=== PATIENT | male | born 1955 | race Caucasian/White ===

== ENCOUNTER 2019-06-14 07:20 | Emergency (ER) | payer BC ==
[2019-06-14] MEDS ORDERED: LIDOCAINE 2% URO-JET 5 ML KIT MM ONE (08:26)
--- NOTE | 2019-06-14 09:07 | ER Document Report ---
ED GI/ - General Chief Complaint: Urinary Problem Stated Complaint: DIFFICULTY URINATING Time Seen by Provider: 06/14/19 08:39 Primary Care Provider: DOMINGUEZ COLINDRES MD [Primary Care Provider] - Follow up as needed ROLANDO IRVIN MD [NO LOCAL MD] - 06/25/19 8:45 am Notes: 63-year-old gentleman with history of BPH presents to the emergency department for acute urinary retention. Patient states that his last urination was at 9 PM last night. Patient complains of suprapubic tenderness and a sensation of bloating. Patient states that historically he would have trouble "getting going" but then would start urinating without problem. Patient denies any flank pain, fevers. TRAVEL OUTSIDE OF THE [place] IN LAST 30 DAYS: No - Related Data Allergies/Adverse Reactions: No Known Allergies Allergy (Verified 06/14/19 07:26) Past Medical History - Social History Smoking Status: Current Every Day Smoker Chew tobacco use (# tins/day): No Frequency of alcohol use: None Drug Abuse: None Family History: None Patient has suicidal ideation: No Patient has homicidal ideation: No Renal/ Medical History: Denies: Hx Peritoneal Dialysis Review of Systems - Review of Systems Constitutional: See HPI EENT: No symptoms reported Cardiovascular: No symptoms reported Respiratory: No symptoms reported Gastrointestinal: See HPI Genitourinary: See HPI Male Genitourinary: No symptoms reported Musculoskeletal: No symptoms reported Skin: No symptoms reported Hematologic/Lymphatic: No symptoms reported Neurological/Psychological: No symptoms reported Physical Exam - Vital signs Vitals: Temp Pulse Resp BP Pulse Ox 97.5 F 75 24 H 146/90 H 94 06/14/19 07:26 06/14/19 07:26 06/14/19 07:26 06/14/19 07:26 06/14/19 07:26 - Notes Notes: PHYSICAL EXAMINATION: Reviewed vital signs and charting by RN GENERAL: Alert, interacts well. No acute distress. HEAD: Normocephalic, atraumatic. EYES: Pupils equal and round. Extraocular movements intact. ENT: Oral mucosa moist, tongue midline. NECK: Full range of motion. Trachea midline. ABDOMEN: soft, suprapubic tenderness. No distention. Bowel sounds present EXTREMITIES: Moves all 4 extremities spontaneously. No edema, No cyanosis. PSYCH: Normal affect, normal mood. SKIN: Warm, dry, normal turgor. No rashes or lesions noted. Course - Re-evaluation Re-evalutation: 06/14/19 09:07 Patient is well-appearing, a Shafer catheter was placed without difficulty and patient reported immediate relief. Patient states his urologist is based out of [facility] here in [place] but does not remember the urologist's exact name. Plan is to contact them to arrange close follow-up. 06/14/19 09:44 I spoke with [facility] urology clinic [place] office and found out that patient's urologist is Dr. Rolando Irvin. The want him to follow-up on June 25 at 9 AM and to keep the Shafer in place. Patient will be given care instructions with the Shafer. Patient is stable for discharge. - Vital Signs Vital signs: Temp Pulse Resp BP Pulse Ox 97.5 F 75 24 H 146/90 H 94 06/14/19 07:26 06/14/19 07:26 06/14/19 07:26 06/14/19 07:26 06/14/19 07:26 Discharge - Discharge Clinical Impression: Urinary retention Condition: Good Disposition: HOME, SELF-CARE Additional Instructions: You were seen in the emergency department this morning for urinary retention. We have placed a Shafer catheter and called your urologist. His recommendation is to keep the Shafer in place and maintain it until you see him on June 25. You have received instructions for care and how to empty the bag. If you do develop fever, worsening abdominal pain, abnormal discharge around the catheter, blood coming around the catheter from your meatus, or any other concerning symptoms. Referrals: DOMINGUEZ COLINDRES MD [Primary Care Provider] - Follow up as needed ROLANDO IRVIN MD [NO LOCAL MD] - 06/25/19 8:45 am
[2019-06-14 10:29] VITALS: BP 124/75
== END 2019-06-14 10:30 | disposition home or self-care (01) ==
LOC: ER 07:20
DX: R33.9 Retention of urine, unspecified (principal); F17.200 Nicotine dependence, unspecified, uncomplicated
CPT/HCPCS: C1758; J3490

== ENCOUNTER 2020-09-21 20:11 | Inpatient (IN) | payer MEDICARE, OTHER ==
--- NOTE | 2020-09-21 20:44 | ER Document Report ---
ED Respiratory Problem - General Chief Complaint: Shortness Of Breath Stated Complaint: WEAKNESS Time Seen by Provider: 09/21/20 20:43 Primary Care Provider: DOMINGUEZ COLINDRES MD [Primary Care Provider] - Follow up as needed Mode of Arrival: Ambulatory Information source: Patient Notes: 09/21/20 20:35 - ED Nursing Note by PATRICIA ACE Num: [id number] : 1955 Patient Age: 64 pt was dx w/lung cancer in both lungs. states for days difficult breathing, worse at night. pt does have some cracked ribs, but the pain is better. Initialized on 09/21/20 20:35 - END OF NOTE MY NOTES 64-year-old male with chief complaint of chest congestion and weakness for 1 month but worse today. Patient has left greater than right lung cancer and is status post chemotherapy and immunotherapy CAR-T system. Patient used to smoke 2 packs a day cigarettes since he was 14 years old but quit several months ago. He was diagnosed in May of this year at [facility] with lung cancer. He receives daily radiation treatments as per Dr. Federico Warren because of metastasis to his right hip and also to his T2 area. Last treatment was 09/12. Patient's son Morena is also present. Patient reports he is been having a lot of productive phlegm excessive amounts over the last month. He denies any hemoptysis at this time. Chest x-ray portable done in room reveals a left pneumonia post obstructional type infiltrate. Patient is saturation 95% on room air. He appears to be afebrile at this time. He denies any Covid or influenza. TRAVEL OUTSIDE OF THE [place] IN LAST 30 DAYS: No - HPI Patient complains to provider of: Cough Onset: Last week Duration: Worse/persistent Initiating Event: Exertion - worse on standing exertion - Related Data Allergies/Adverse Reactions: No Known Allergies Allergy (Verified 06/14/19 07:26) Home Medications: decadron, proscar,zofran, oxycodone, compazine, flomax Past Medical History - Social History Smoking Status: Former Smoker Cigarette use (# per day): No Chew tobacco use (# tins/day): No Smoking Education Provided: No Frequency of alcohol use: None - patient quit drinking over 40 years ago Family History: Reviewed & Not Pertinent, Malignancy Patient has suicidal ideation: No Patient has homicidal ideation: No Renal/ Medical History: Denies: Hx Peritoneal Dialysis Review of Systems - Review of Systems Constitutional: See HPI, Weakness, Weight loss, Recent illness EENT: No symptoms reported Cardiovascular: See HPI, Chest pain, Orthopnea, Dyspnea, Dizziness, Lightheaded Respiratory: See HPI, Cough, Short of breath, Sputum Gastrointestinal: No symptoms reported Genitourinary: No symptoms reported Male Genitourinary: No symptoms reported Musculoskeletal: No symptoms reported Skin: No symptoms reported Hematologic/Lymphatic: No symptoms reported Neurological/Psychological: No symptoms reported Physical Exam - Vital signs Vitals: Temp Pulse Resp BP Pulse Ox 97.9 F 118 H 16 72/41 L 95 09/21/20 20:22 09/21/20 20:22 09/21/20 20:22 09/21/20 20:22 09/21/20 20:22 Interpretation: Tachycardic - General General appearance: Alert - HEENT Head: Normocephalic, Atraumatic Eyes: Normal Pupils: PERRL - Respiratory Respiratory status: Labored, Tachypnea Chest status: Nontender Breath sounds: Rhonchi - L>R Chest palpation: Normal - Cardiovascular Rhythm: Tachycardia Heart sounds: Normal auscultation Murmur: No - Abdominal Inspection: Normal Distension: No distension Bowel sounds: Normal Tenderness: Nontender Organomegaly: No organomegaly - Rectal Prostate: Other - deferred - Genitourinary Scrotum: Other - deferred - Back Back: Normal, Nontender - Extremities General upper extremity: Normal inspection, Nontender, Normal color, Normal ROM, Normal temperature General lower extremity: Normal inspection, Nontender, Normal color, Normal ROM, Normal temperature, Normal weight bearing. No: Ramírez's sign - Neurological Neuro grossly intact: Yes Cognition: Normal Orientation: AAOx4 Sosa Coma Scale Eye Opening: Spontaneous Sosa Coma Scale Verbal: Oriented Sosa Coma Scale Motor: Obeys Commands [place] Coma Scale Total: 15 Speech: Normal Motor strength normal: LUE, RUE, LLE, RLE Sensory: Normal - Psychological Associated symptoms: Normal affect, Normal mood - Skin Skin Temperature: Warm Skin Moisture: Dry Skin Color: Normal Course - Vital Signs Vital signs: Temp Pulse Resp BP Pulse Ox 97.9 F 118 H 23 H 98/61 L 96 09/21/20 20:22 09/21/20 20:22 09/21/20 20:49 09/21/20 20:50 09/21/20 21:00 - Laboratory Result Diagrams: 09/21/20 22:00 09/21/20 22:00 Laboratory results interpreted by me: 09/21/20 09/21/20 09/21/20 22:00 22:00 22:00 WBC 2.8 L RBC 2.20 L Hgb 7.0 L Hct 20.9 L RDW 19.7 H Plt Count 89 L Lymphocytes % (Manual) 9 L Monocytes % (Manual) 20 H Abs Lymphs (Manual) 0.3 L PT 17.3 H Sodium 121.5 L Potassium 3.2 L Chloride 78 L Carbon Dioxide 37 H BUN 25 H Glucose 158 H Calcium 7.7 L NT-Pro-B Natriuret Pep Total Protein 4.7 L Albumin 2.3 L 09/21/20 22:00 WBC RBC Hgb Hct RDW Plt Count Lymphocytes % (Manual) Monocytes % (Manual) Abs Lymphs (Manual) PT Sodium Potassium Chloride Carbon Dioxide BUN Glucose Calcium NT-Pro-B Natriuret Pep 1000 H Total Protein Albumin Critical Care Note - Critical Care Note Comments: I discussed this case with Dr. Uche Cardenas at 2320 and he advises he will see the patient for admission Discharge - Discharge Clinical Impression: Hyponatremia, Anemia requiring transfusions Pneumonia Qualifiers: Pneumonia type: due to unspecified organism Laterality: left Lung location: unspecified part of lung Qualified Code(s): J18.9 - Pneumonia, unspecified organism Condition: Stable Disposition: ADMITTED INPATIENT Admitting Provider: Theresa Unit Admitted: IMCU Referrals: DOMINGUEZ COLINDRES MD [Primary Care Provider] - Follow up as needed
[2020-09-21] MEDS ORDERED: VANCOMYCIN HCL INJ 1000 MG VIAL IV ONE (21:05)
[2020-09-21] MEDS ORDERED: PIPERACILLIN/TAZOBACTAM 3.375 GM VIAL IV ONE (21:06)
[2020-09-21] MEDS ORDERED: NORMAL SALINE 1000 ML 1,000 ML IV PRN (21:10)
--- NOTE | 2020-09-21 21:22 | RADIOLOGY REPORT (SQ) ---
EXAM DESCRIPTION: XR CHEST 1 VIEW COMPLETED DATE/TME: 09/21/2020 21:00 CLINICAL HISTORY: 64 years, Male, sob COMPARISON: June 22, 2020 PET/CT NUMBER OF VIEWS: 1 TECHNIQUE: Portable AP upright view of the chest was obtained at 8:57 PM LIMITATIONS: None. FINDINGS: Interstitial and airspace opacities within the left mid and lower lung zones with more dense consolidation left lung base are similar to the prior examination. Significant hypermetabolic activity is noted within the left lower lobe as well as several lymph nodes on PET/CT and underlying malignancy is not excluded. Mild peripheral fibrotic changes are noted on the right. Heart size is top normal. No pneumothorax. No significant pleural effusion is seen. IMPRESSION: Interstitial airspace opacities on the left with more dense consolidation at the left base. No significant interval change is suspected when correlated with the June 22, 2020 PET/CT. copyright 2010 [employer]- All Rights Reserved
[2020-09-21 22:44] LABS: HEMATOCRIT 20.9 % (37.9-51.0); MEAN CORPUSCULAR HGB CONC 33.6 g/dL (32.0-36.0); MEAN CORPUSCULAR VOLUME 95 fl (80-97); PROTHROMBIN TIME 17.3 SEC (11.4-15.4); RED CELL DISTRIBUTION WIDTH 19.7 % (11.5-14.0); WHITE BLOOD COUNT 2.8 10^3/uL (4.0-10.5)
[2020-09-21 22:45] LABS: PARTIAL THROMBOPLASTIN TIME 34.5 SEC (23.5-35.8)
[2020-09-21 22:59] LABS: ALBUMIN 2.3 g/dL (3.5-5.0); ALKALINE PHOSPHATASE 87 U/L (38-126); ANION GAP 7 (5-19); ASPARTATE AMINO TRANSFERASE 22 U/L (17-59); BILIRUBIN,DIRECT 0.3 mg/dL (0.0-0.4); BLOOD UREA NITROGEN 25 mg/dL (7-20); CALCIUM 7.7 mg/dL (8.4-10.2); CARBON DIOXIDE 37 mmol/L (22-30); CHLORIDE 78 mmol/L (98-107); GLUCOSE 158 mg/dL (75-110); POTASSIUM 3.2 mmol/L (3.6-5.0); TOTAL PROTEIN 4.7 g/dL (6.3-8.2)
[2020-09-21 23:03] LABS: PLATELET COUNT 89 10^3/uL (150-450)
--- NOTE | 2020-09-21 23:03 | EKG REPORT ---
SEVERITY:- ABNORMAL ECG - SINUS RHYTHM REPOL ABNRM SUGGESTS ISCHEMIA, ANT-LAT LEADS : Confirmed by: Denys Rodriguez MD 21-Sep-2020 23:02:44
[2020-09-21] MEDS ORDERED: NORMAL SALINE 250 ML IV PRN ×2 (23:05)
[2020-09-21 23:07] LABS: ABSOLUTE LYMPHOCYTES# (MANUAL) 0.3 10^3/uL (0.5-4.7); ABSOLUTE MONOCYTES # (MANUAL) 0.6 10^3/uL (0.1-1.4); BASOPHILS % (MANUAL) 0 % (0-2); EOSINOPHILS % (MANUAL) 0 % (0-6); LYMPHOCYTES % (MANUAL) 9 % (13-45); MONOCYTES % (MANUAL) 20 % (3-13); SEGMENTED NEUTROPHILS % (MAN) 71 % (42-78); TOTAL CELLS COUNTED 100
[2020-09-21 23:10] LABS: ANISOCYTOSIS 2+; OVALOCYTES SLIGHT; PLATELET COMMENT DECREASED; POLYCHROMASIA SLIGHT
[2020-09-21 23:11] LABS: NT PRO BNP 1000 pg/mL (<125)
[2020-09-21 23:12] LABS: TROPONIN I < 0.012 ng/mL
[2020-09-21] MEDS ORDERED: VANCOMYCIN HCL INJ 1000 MG VIAL ONE (23:31)
[2020-09-22] MEDS ORDERED: GUAIFENESIN 600 MG TABLET.SA PO PRN ×2 (00:09→16:32)
[2020-09-22] MEDS ORDERED: VANCOMYCIN HCL 0 MG in DEXTROSE 5%-WATER 250 ML IV NR (00:30)
[2020-09-22] MEDS ORDERED: CEFEPIME 2 GM/D5W RTU 2 GM/50 ML RTUPB IV SCH (00:30)
--- NOTE | 2020-09-22 00:31 | PDOC H&P ---
History of Present Illness Admission Date/PCP: 09/21/20 23:46 DOMINGUEZ COLINDRES MD Patient complains of: Generalized weakness History of Present Illness: RHIANNON DAN is a 64 year old male with a history of metastatic lung cancer(metastases to T2 and right hip) diagnosed about 3 months back currently on chemo, immune and radiotherapy presents to the ER with generalized weakness. Patient reports that he has been generally feeling weak over the past month aft er he was started on the chemotherapy but over the last week it has progressively gotten worse. He also states that yesterday he felt very weak and fell to the ground but denies any history of feeling lightheaded, chest pain, palpitation, head injury or loss of consciousness immediately before, during or after the incident. Patient also reports that he has been coughing more than usual and he brings up clear whitish sputum. He also has occasional vomiting of ingested matter but denies any history of hematochezia, hematemesis or melena. Patient also denies history of fever, chills, diarrhea, dysuria, urgency or frequency of urination. Patient reports that he was transfused during the ses christiano of chemotherapy last Friday. Apart from his frequent hospital visits for chemo and radiotherapy patient denies history of close contact with sick patient. Social History Information Source: Patient Lives with: Family Smoking Status: Former Smoker Frequency of Alcohol Use: None Hx Recreational Drug Use: No Drugs: None - Advance Directive Resuscitation Status: Full Code Family History Family History: Reviewed & Not Pertinent, Malignancy Parental Family History Reviewed: Yes Children Family History Reviewed: Yes Sibling(s) Family History Reviewed.: Yes Medication/Allergy Allergies/Adverse Reactions: No Known Allergies Allergy (Verified 06/14/19 07:26) Review of Systems Constitutional: ABSENT: chills, headache(s), weight gain, weight loss Eyes: ABSENT: visual disturbances Ears: ABSENT: hearing changes Nose, Mouth, and Throat: ABSENT: headache(s), mouth pain, sore throat Cardiovascular: PRESENT: dyspnea on exertion. ABSENT: chest pain, edema, orthropnea, palpitations Respiratory: PRESENT: as per HPI, cough. ABSENT: hemoptysis Gastrointestinal: ABSENT: abdominal pain, constipation, diarrhea, hematemesis, hematochezia, nausea, vomiting Genitourinary: ABSENT: dysuria, hematuria Musculoskeletal: ABSENT: joint swelling Integumentary: ABSENT: rash, wounds Neurological: ABSENT: abnormal speech, confusion, dizziness, focal weakness, syncope Psychiatric: ABSENT: anxiety, depression, homidical ideation, suicidal ideation Endocrine: ABSENT: cold intolerance, heat intolerance, polydipsia, polyuria Physical Exam Vital Signs: Temp Pulse Resp BP Pulse Ox 97.9 F 118 H 23 H 98/61 L 96 09/21/20 20:22 09/21/20 20:22 09/21/20 20:49 09/21/20 20:50 09/21/20 21:00 Intake & Output 09/20/20 09/21/20 09/22/20 06:59 06:59 06:59 Intake Total 1000 Balance 1000 Weight 73.482 kg Additional comments: GENERAL APPEARANCE: Alert and oriented x3, in no acute distress HEENT: Normocephalic and atraumatic. No scleral icterus. Moist oral mucosa NECK: Supple. No lymphadenopathy or tenderness. No JVD CHEST: Symmetric. Nontender to palpation. LUNGS: Clear with good air entry bilaterally. No wheezing or crackles HEART: Regular rate and rhythm with normal S1 and S2. No murmurs, gallops, or rubs. ABDOMEN: soft, active bowel sounds, no direct or rebound tenderness. No organomegaly detected. No CVA tenderness EXTREMITIES: No cyanosis, clubbing, or edema. MUSCULOSKELETAL: No deformity, atrophy or swelling noted PSYCHIATRIC: Recent and remote memory is intact. Appropriate mood and affect. SKIN: Warm, dry, and well perfused. No lesions or rashes are noted. NEUROLOGIC: No focal sensory or motor deficits are noted. Results Laboratory Results: 09/21/20 22:00 09/21/20 22:00 09/21/20 09/21/20 22:00 22:00 WBC 2.8 L RBC 2.20 L Hgb 7.0 L Hct 20.9 L MCV 95 MCH 32.0 MCHC 33.6 RDW 19.7 H Plt Count 89 L Seg Neutrophils % Not Reportable Sodium 121.5 L Potassium 3.2 L Chloride 78 L Carbon Dioxide 37 H Anion Gap 7 BUN 25 H Creatinine 0.58 Est GFR ( Amer) > 60 Glucose 158 H Calcium 7.7 L Total Bilirubin 1.0 AST 22 Alkaline Phosphatase 87 Total Protein 4.7 L Albumin 2.3 L 09/21/20 22:00 Troponin I < 0.012 NT-Pro-B Natriuret Pep 1000 H Impressions: Chest X-Ray 09/21/20 20:46 IMPRESSION: Interstitial airspace opacities on the left with more dense consolidation at the left base. No significant interval change is suspected when correlated with the June 22, 2020 PET/CT. copyright 2010 [employer]- All Rights Reserved Assessment and Plan - Diagnosis (1) Anemia requiring transfusions Is this a current diagnosis for this admission?: Yes Plan: Patient presents with generalized weakness, dyspnea with exertion Likely due to bone marrow suppression from chemotherapy and radiotherapy Requested reticulocyte counts and stool guaiac Transfuse with 2 units of packed RBC Continue following up with heme-onc (2) Left lower lobe pneumonia Is this a current diagnosis for this admission?: Yes Plan: Patient reports that he has been having increasing cough with sputum production Chest x-ray shows dense consolidative changes on the left lower lung Due to history of neutropenia started him on cefepime and vancomycin Intranasal oxygen to maintain saturation above 94 percent Tylenol as needed for fever Follow-up with blood culture CBC with differential to calculate absolute neutrophil count (3) Pancytopenia Is this a current diagnosis for this admission?: Yes Plan: Likely due to bone marrow suppression from chemo and radiotherapy WBC count was 2.8, H&H 7.0/28.9, platelet 89k Continue treating current infection as stated above We will transfuse with 2 packed RBC Currently has no sign of bleeding We will obtain CBC with differential to check for absolute neutrophil count Continue monitoring CBC (4) Hyponatremia Is this a current diagnosis for this admission?: Yes Plan: Serum sodium on presentation was 121.5 Urine osmolality was above 500, serum osmolality 264 and urine sodium less than 5 suggestive of hypovolemic hyponatremia likely from volume depletion Continue IV hydration heart rate of 125 mL/h Goal of correction 4 to 6 mEq per the first 24 hours Continue closely monitoring serum sodium level (5) Hypokalemia Is this a current diagnosis for this admission?: Yes (6) Volume depletion Is this a current diagnosis for this admission?: Yes Plan: Likely due to poor oral intake and nausea and vomiting Has been hydrated at the ED with 2 L Continue gentle hydration to avoid overcorrection of hyponatremia (7) Fall Is this a current diagnosis for this admission?: Yes Plan: Patient had a fall 1 day prior to presentation and denies any dizziness, loss of consciousness or head injury Consider PT/OT once acute condition resolves (8) Lung cancer metastatic to bone Is this a current diagnosis for this admission?: Yes Plan: Patient was recently diagnosed with non-small cell lung cancer with metastasis to T2 and right hip Currently being followed with heme-onc at outside facility and on chemo, immune and radiotherapy We will continue managing nausea and vomiting symptomatically Continue follow-up with outside heme-onc - Time Time Spent with patient: 35 or more minutes Total Critical Time (Minutes): 45 Medications reviewed and adjusted accordingly: Yes Anticipated Discharge Disposition: Home, Self Care Anticipated Discharge Timeframe: within 48 hours - Inpatient Certification Based on my medical assessment, after consideration of the patient's comorb idities, presenting symptoms, or acuity I expect that the services needed warrant INPATIENT care.: Yes I certify that my determination is in accordance with my understanding of Medicare's requirements for reasonable and necessary INPATIENT services [42 CFR 412.3e].: Yes Post Hospital Care: D/C or Transfer Summary
[2020-09-22 00:36] LABS: ABSOLUTE RETICS # 0.046 10^6/uL (0.028-0.122)
[2020-09-22] MEDS ORDERED: POTASSIUM CHLORIDE 20 MEQ PACKET PO ONE (00:36)
[2020-09-22] MEDS: RINGERS SOLUTION,LACTATED 1,000 ML IV PRN ×2 (01:40→17:30)
[2020-09-22 02:16] LABS: APPEARANCE,URINE SLIGHTLY-CLOUDY; BILIRUBIN,URINE NEGATIVE (NEGATIVE); COLOR,URINE YELLOW; GLUCOSE, URINE NEGATIVE (NEGATIVE); KETONES,URINE NEGATIVE (NEGATIVE); LEUKOCYTE ESTERASE,URINE NEGATIVE (NEGATIVE); NITRITE,URINE NEGATIVE (NEGATIVE); PROTEIN,URINE NEGATIVE (NEGATIVE); URINE SPECIFIC GRAVITY 1.018; UROBILINOGEN,URINE NEGATIVE mg/dL (<2.0)
[2020-09-22 02:39] LABS: OSMOLALITY,URINE 517 mOsm/kg (300-900); URINE SODIUM < 5 mmol/L (30-90)
[2020-09-22] MEDS: PANTOPRAZOLE SODIUM 40 MG TABLET.DR PO SCH (05:30)
[2020-09-22] MEDS ORDERED: RINGERS SOLUTION,LACTATED 1,000 ML IV ONE (10:02)
--- NOTE | 2020-09-22 10:15 | PDOC PROGRESS REPORT ---
Subjective Date:: 09/22/20 Subjective:: The patient is finishing his second unit of packed cells. He states he feels sl ightly better than admission but still feels poorly. Blood pressures have been low for the last several hours. Reason For Visit: PNEUMONIA,HYPONATREMIA,ANEMIA REQUIRING TRANSFUSIO Physical Exam Vital Signs: Temp Pulse Resp BP Pulse Ox 98.2 F 83 18 88/46 L 97 09/22/20 06:28 09/22/20 06:28 09/22/20 06:28 09/22/20 06:28 09/22/20 09:00 Pulse Oximeter Continuous Start: 09/22/20 00:09 Freq: RTQ4 Status: Active Protocol: Document 09/22/20 09:00 [facility] (Rec: 09/22/20 09:01 [facility] [id number]) Pulse Oximetry Assessment Oxygen Saturation (92-100) 97 Oxygen Flow Rate (L/min) 2 Oxygen Delivery Method Nasal Cannula Fraction of Inspired Oxygen (FIO2) 28 Equipment Usage Equipment in Use Continuous SpO2 Machine # 7 Intake & Output 09/21/20 09/22/20 09/23/20 06:59 06:59 06:59 Intake Total 1350 Balance 1350 Weight 75.7 kg General appearance: PRESENT: cooperative, mild distress, well-developed Head exam: PRESENT: atraumatic, normocephalic Eye exam: PRESENT: conjunctiva pale. ABSENT: scleral icterus Ear exam: PRESENT: normal external ear exam. ABSENT: bleeding, drainage Mouth exam: PRESENT: dry mucosa, tongue midline Respiratory exam: PRESENT: clear to auscultation santana - Anteriorly, symmetrical, unlabored. ABSENT: rales, rhonchi, tachypnea, wheezes Cardiovascular exam: PRESENT: RRR, +S1, +S2, systolic murmur - 2/6. ABSENT: bradycardia, diastolic murmur, irregular rhythm, tachycardia GI/Abdominal exam: PRESENT: normal bowel sounds, soft. ABSENT: distended, guarding, tenderness Rectal exam: PRESENT: deferred Extremities exam: ABSENT: pedal edema Musculoskeletal exam: PRESENT: normal inspection. ABSENT: deformity, dislocation Neurological exam: PRESENT: alert, awake, oriented to person, oriented to place, oriented to time, oriented to situation. ABSENT: altered Psychiatric exam: PRESENT: flat affect. ABSENT: agitated, anxious Focused psych exam: ABSENT: delusional, paranoid, restlessness Skin exam: PRESENT: dry, pallor, warm. ABSENT: rash Results Laboratory Results: 09/21/20 22:00 09/21/20 22:00 09/21/20 09/21/20 09/21/20 22:00 22:00 22:00 WBC 2.8 L RBC 2.20 L Hgb 7.0 L Hct 20.9 L MCV 95 MCH 32.0 MCHC 33.6 RDW 19.7 H Plt Count 89 L Seg Neutrophils % Not Reportable Retic Count (auto) 2.10 Sodium 121.5 L Potassium 3.2 L Chloride 78 L Carbon Dioxide 37 H Anion Gap 7 BUN 25 H Creatinine 0.58 Est GFR ( Amer) > 60 Glucose 158 H Serum Osmolality Calcium 7.7 L Total Bilirubin 1.0 AST 22 Alkaline Phosphatase 87 Total Protein 4.7 L Albumin 2.3 L Urine Color Urine Appearance Urine pH Ur Specific [place] Urine Protein Urine Glucose (UA) Urine Ketones Urine Blood Urine Nitrite Ur Leukocyte Esterase Urine WBC (Auto) Urine RBC (Auto) Urine Osmolality Blood Type Antibody Screen 09/21/20 09/21/20 09/22/20 22:00 23:50 01:50 WBC RBC Hgb Hct MCV MCH MCHC RDW Plt Count Seg Neutrophils % Retic Count (auto) Sodium Potassium Chloride Carbon Dioxide Anion Gap BUN Creatinine Est GFR ( Amer) Glucose Serum Osmolality 264 L Calcium Total Bilirubin AST Alkaline Phosphatase Total Protein Albumin Urine Color Urine Appearance Urine pH Ur Specific [place] Urine Protein Urine Glucose (UA) Urine Ketones Urine Blood Urine Nitrite Ur Leukocyte Esterase Urine WBC (Auto) Urine RBC (Auto) Urine Osmolality 517 Blood Type O POSITIVE Antibody Screen NEGATIVE 09/22/20 01:50 WBC RBC Hgb Hct MCV MCH MCHC RDW Plt Count Seg Neutrophils % Retic Count (auto) Sodium Potassium Chloride Carbon Dioxide Anion Gap BUN Creatinine Est GFR ( Amer) Glucose Serum Osmolality Calcium Total Bilirubin AST Alkaline Phosphatase Total Protein Albumin Urine Color YELLOW Urine Appearance SLIGHTLY-CLOUDY Urine pH 5.0 Ur Specific [place] 1.018 Urine Protein NEGATIVE Urine Glucose (UA) NEGATIVE Urine Ketones NEGATIVE Urine Blood NEGATIVE Urine Nitrite NEGATIVE Ur Leukocyte Esterase NEGATIVE Urine WBC (Auto) 3 Urine RBC (Auto) 0 Urine Osmolality Blood Type Antibody Screen 09/21/20 22:00 Troponin I < 0.012 NT-Pro-B Natriuret Pep 1000 H Impressions: Chest X-Ray 09/21/20 20:46 IMPRESSION: Interstitial airspace opacities on the left with more dense consolidation at the left base. No significant interval change is suspected when correlated with the June 22, 2020 PET/CT. copyright 2010 [employer]- All Rights Reserved Assessment and Plan - Diagnosis (1) Anemia requiring transfusions Is this a current diagnosis for this admission?: Yes (2) Left lower lobe pneumonia Is this a current diagnosis for this admission?: Yes (3) Pancytopenia Is this a current diagnosis for this admission?: Yes (4) Hyponatremia Is this a current diagnosis for this admission?: Yes (5) Hypokalemia Is this a current diagnosis for this admission?: Yes (6) Volume depletion Is this a current diagnosis for this admission?: Yes (7) Fall Qualifiers: Encounter type: initial encounter Qualified Code(s): W19.XXXA - Unspecified fall, initial encounter Is this a current diagnosis for this admission?: Yes (8) Lung cancer metastatic to bone Is this a current diagnosis for this admission?: Yes (9) Hypotension Qualifiers: Hypotension type: hypotension due to hypovolemia Qualified Code(s): I95.89 - Other hypotension; E86.1 - Hypovolemia Is this a current diagnosis for this admission?: Yes (10) SIADH (syndrome of inappropriate ADH production) Is this a current diagnosis for this admission?: Yes - Plan Summary Summary: (1) Anemia requiring transfusions (2) Left lower lobe pneumonia (3) Pancytopenia (4) Hyponatremia (5) Hypokalemia (6) Volume depletion (7) Fall (8) Lung cancer metastatic to bone (9) Hypotension (10) SIADH (syndrome of inappropriate ADH production) 09/22/2020 Patient received 2 units of packed red blood cells however there was an inadvertent leak. Hemoglobin is only 7.9 after 2 units up from 7.0. Will recheck hemoglobin in the morning. He may require additional blood. Left lower lobe pneumonia. Dual antibiotic therapy at this time. Mucinex to help clear mucus. Pancytopenia from recent chemotherapy treatments. Transfusion for red blood cells. Monitor platelets and white blood cell count. Hypokalemia-supplement potassium Hypotension-corrected with IV fluids Hyponatremia-urine osmolality was over 500 and the serum osmolality was quite low. Urine sodium was less than 5. Patient has SIADH. Possibly/most likely re lated to his lung cancer. Once blood pressure stabilizes will fluid restrict and monitor serum sodium. - Time Time Spent with patient: 15-24 minutes Medications reviewed and adjusted accordingly: Yes Anticipated Discharge Disposition: Home with Home Health Anticipated Discharge Timeframe: within 72 hours
[2020-09-22] MEDS: ACETAMINOPHEN 325 MG TABLET PO PRN ×2 (10:43→22:36)
[2020-09-22 11:39] LABS: MEAN CORPUSCULAR HEMOGLOBIN 29.6 pg (27.0-33.4); RED BLOOD COUNT 2.68 10^6/uL (4.35-5.55); RED CELL DISTRIBUTION WIDTH 21.7 % (11.5-14.0); WHITE BLOOD COUNT 2.8 10^3/uL (4.0-10.5)
[2020-09-22 11:54] LABS: BLOOD UREA NITROGEN 14 mg/dL (7-20); CALCIUM 7.5 mg/dL (8.4-10.2); CHLORIDE 84 mmol/L (98-107); GLUCOSE 95 mg/dL (75-110); POTASSIUM 3.4 mmol/L (3.6-5.0)
[2020-09-22 12:00] LABS: CARBON DIOXIDE 37 mmol/L (22-30)
[2020-09-22 12:02] LABS: ANION GAP 3 (5-19)
[2020-09-22 12:32] LABS: MEAN CORPUSCULAR VOLUME 90 fl (80-97)
[2020-09-22 12:43] LABS: HEMOGLOBIN 7.9 g/dL (13.5-17.0)
[2020-09-22 12:46] LABS: PLATELET COUNT 90 10^3/uL (150-450)
[2020-09-22] MEDS: VANCOMYCIN HCL 1,000 MG in DEXTROSE 5%-WATER 250 ML IV SCH ×2 (17:30→22:14)
[2020-09-22] MEDS: ALBUTEROL SULFATE HFA (90 MCG/PUFF) 8 GM MDI (1 MDI/ER DISP) IH SCH ×2 (18:03→22:17)
[2020-09-22] MEDS: CEFEPIME HCL 2 GM in DEXTROSE 5%-WATER 50 ML IV SCH (22:15)
[2020-09-23] MEDS ORDERED: ONDANSETRON HCL INJ/PF 4 MG/2 ML SDV ONE (00:01)
[2020-09-23] MEDS: RINGERS SOLUTION,LACTATED 1,000 ML IV PRN (04:00)
[2020-09-23] MEDS: VANCOMYCIN HCL 1,000 MG in DEXTROSE 5%-WATER 250 ML IV SCH ×2 (05:57→14:05)
[2020-09-23] MEDS: PANTOPRAZOLE SODIUM 40 MG TABLET.DR PO SCH (06:23)
[2020-09-23] MEDS: FINASTERIDE 5 MG TABLET PO SCH (09:41)
[2020-09-23] MEDS: CEFEPIME HCL 2 GM in DEXTROSE 5%-WATER 50 ML IV SCH ×2 (09:41→23:24)
[2020-09-23] MEDS: TAMSULOSIN HCL 0.4 MG CAP.SR.24H PO SCH (09:41)
[2020-09-23] MEDS: FLUTICASONE NASAL SPRAY 50 MCG/SPRY 120 SPRAY/16 GM NASL SCH (09:56)
[2020-09-23] MEDS: ACETAMINOPHEN 325 MG TABLET PO PRN ×2 (10:03→18:24)
[2020-09-23 11:58] LABS: ABSOLUTE LYMPHOCYTES (AUTO) 0.3 10^3/uL (0.5-4.7); ABSOLUTE MONOCYTES (AUTO) 0.4 10^3/uL (0.1-1.4); ABSOLUTE NEUT (AUTO) 1.9 10^3/uL (1.7-8.2); EOSINOPHILS % (AUTO) 0.1 % (0-6); HEMATOCRIT 24.1 % (37.9-51.0); LYMPHOCYTES % (AUTO) 11.6 % (13-45); MEAN CORPUSCULAR HEMOGLOBIN 30.1 pg (27.0-33.4); MEAN CORPUSCULAR HGB CONC 33.3 g/dL (32.0-36.0); MEAN CORPUSCULAR VOLUME 90 fl (80-97); MONOCYTES % (AUTO) 15.4 % (3-13); PLATELET COUNT 105 10^3/uL (150-450); RED BLOOD COUNT 2.67 10^6/uL (4.35-5.55); RED CELL DISTRIBUTION WIDTH 22.2 % (11.5-14.0); SEGMENTED NEUTROPHILS % (AUTO) 72.9 % (42-78); TOTAL CELLS COUNTED % (AUTO) 100 %; WHITE BLOOD COUNT 2.6 10^3/uL (4.0-10.5)
--- NOTE | 2020-09-23 12:05 | PDOC CONSULTATION ---
Consultation Consult Date: 09/23/20 Provider Consulted: GUI ASHRAF Consult reason:: Hematology/Oncology consultation was requested for patient on active chemotherapy for lung cancer. Admitted with weakness. History of Present Illness Admission Date/PCP: 09/21/20 23:46 DOMINGUEZ COLINDRES MD History of Present Illness: RHIANNON DAN is a 64 year old male who was diagnosed with metastatic lung cancer about 3 months ago. He underwent radiation to a bone met in his hip and is currently receiving chemotherapy every 2 weeks in [place]. Last was 10 days ago. He does not remember name of agents. He states that he "fell out" and became very weak and worn out. He presented to the ED and was diagnosed with pneumonia and pancytopenia. No fever. He stays cold and has poor appetite. He has received blood transfusion. Past Medical History Psychiatric Medical History: Denies: Depression Social History Lives with: Family Smoking Status: Former Smoker Cigarettes Packs Per Day: 2 Electronic Cigarette use?: No Frequency of Alcohol Use: None Hx Recreational Drug Use: No Drugs: None Past Social History Note: 2 kids, 2 GKs, quit cigarettes a few months ago. - Advance Directive Resuscitation Status: Full Code Family History Family History: Reviewed & Not Pertinent, Malignancy Parental Family History Reviewed: Yes - Mom pancreatic cancer. Dad Colon cancer. Children Family History Reviewed: No Sibling(s) Family History Reviewed.: No Medication/Allergy Home Medications: Albuterol Sulfate [Albuterol Sulfate Hfa] 2 puff PO QID 09/22/20 Dexamethasone [Decadron 4 Mg Tablet] 20 mg PO ASDIR PRN 09/22/20 Finasteride [Proscar 5 mg Tablet] 5 mg PO DAILY 09/22/20 Fluticasone Propionate [Flonase Nasal [place] 50 Mcg/[place] 16 gm] 2 spray NASL DAILY 09/22/20 Oxycodone HCl [Oxy-Ir 5 mg Tablet] 10 mg PO Q4HP PRN 09/22/20 Tamsulosin HCl [Flomax 0.4 mg Cap.sr] 0.8 mg PO DAILY 09/22/20 Allergies/Adverse Reactions: No Known Allergies Allergy (Verified 06/14/19 07:26) Review of Systems Constitutional: PRESENT: fatigue. ABSENT: fever(s), headache(s) Eyes: ABSENT: visual disturbances Ears: ABSENT: hearing changes Nose, Mouth, and Throat: ABSENT: sore throat Cardiovascular: PRESENT: dyspnea on exertion Gastrointestinal: PRESENT: diarrhea, nausea Genitourinary: ABSENT: dysuria Integumentary: ABSENT: rash Neurological: PRESENT: weakness Endocrine: PRESENT: cold intolerance Hematologic/Lymphatic: ABSENT: easy bleeding Physical Exam Vital Signs: Temp Pulse Resp BP Pulse Ox 97.7 F 95 18 88/49 L 100 09/23/20 08:35 09/23/20 08:35 09/23/20 08:35 09/23/20 08:35 09/23/20 08:35 Pulse Oximeter Continuous Start: 09/22/20 00:09 Freq: RTQ4 Status: Active Protocol: Document 09/23/20 08:31 [facility] (Rec: 09/23/20 08:32 [facility] [id number]) Pulse Oximetry Assessment Oxygen Saturation (92-100) 100 Oxygen Flow Rate (L/min) 1.5 Oxygen Delivery Method Nasal Cannula Equipment Usage Equipment Standby Continuous SpO2 Machine # 7 Intake & Output 09/22/20 09/23/20 09/24/20 06:59 06:59 06:59 Intake Total 1350 4820 250 Output Total 501 Balance 1350 4319 250 Weight 75.7 kg 75.7 kg General appearance: PRESENT: no acute distress, thin Exam: 64 year old male. Head exam: PRESENT: atraumatic, normocephalic Eye exam: PRESENT: EOMI, PERRLA Mouth exam: PRESENT: moist, tongue midline Neck exam: ABSENT: lymphadenopathy, tenderness Respiratory exam: PRESENT: clear to auscultation santana Cardiovascular exam: PRESENT: RRR GI/Abdominal exam: PRESENT: soft. ABSENT: tenderness Extremities exam: ABSENT: pedal edema Musculoskeletal exam: PRESENT: normal inspection Neurological exam: PRESENT: alert, awake, other - poor memory Psychiatric exam: PRESENT: appropriate affect Skin exam: PRESENT: normal color Results Laboratory Results: 09/22/20 09/22/20 11:27 11:27 WBC 2.8 L RBC 2.68 L Hgb 7.9 L Hct 24.0 L MCV 90 D MCH 29.6 MCHC 33.0 RDW 21.7 H Plt Count 90 L Sodium 124.3 L Potassium 3.4 L Chloride 84 L Carbon Dioxide 37 H Anion Gap 3 L BUN 14 Creatinine 0.39 L Est GFR ( Amer) > 60 Glucose 95 Calcium 7.5 L Magnesium 1.6 09/21/20 22:00 Troponin I < 0.012 NT-Pro-B Natriuret Pep 1000 H Impressions: Chest X-Ray 09/21/20 20:46 IMPRESSION: Interstitial airspace opacities on the left with more dense consolidation at the left base. No significant interval change is suspected when correlated with the June 22, 2020 PET/CT. copyright 2010 [employer] All Rights Reserved Assessment & Plan - Diagnosis (1) Lung cancer metastatic to bone Is this a current diagnosis for this admission?: Yes Plan: No treatment planned during this admission. He should follow-up with his primary oncologist in [place], but I am happy to help arrange for treatment closer to home, if requested. (2) Pancytopenia Is this a current diagnosis for this admission?: Yes Plan: Supportive care. No fever. ANC 1.9, so change to targeted ABX as soon as possible. Transfusion support as indicated. - Plan Summary Plan Summary: Patient was discussed with Dr. Guillermo. Please feel free to call with any questions or concerns.
--- NOTE | 2020-09-23 12:09 | PDOC PROGRESS REPORT ---
Subjective Date:: 09/23/20 Subjective:: The patient is resting in bed. He still feels weak. The patient's and son entered the room during this encounter. The patient is somewhat frustrated at the significant adverse effects from his chemotherapy. Reason For Visit: PNEUMONIA,HYPONATREMIA,ANEMIA REQUIRING TRANSFUSIO Physical Exam Vital Signs: Temp Pulse Resp BP Pulse Ox 97.9 F 102 H 18 89/49 L 97 09/23/20 11:43 09/23/20 11:43 09/23/20 11:43 09/23/20 11:43 09/23/20 11:43 Pulse Oximeter Continuous Start: 09/22/20 00:09 Freq: RTQ4 Status: Active Protocol: Document 09/23/20 08:31 [facility] (Rec: 09/23/20 08:32 [facility] [id number]) Pulse Oximetry Assessment Oxygen Saturation (92-100) 100 Oxygen Flow Rate (L/min) 1.5 Oxygen Delivery Method Nasal Cannula Equipment Usage Equipment Standby Continuous SpO2 Machine # 7 Intake & Output 09/22/20 09/23/20 09/24/20 06:59 06:59 06:59 Intake Total 1350 4820 250 Output Total 501 Balance 1350 4319 250 Weight 75.7 kg 75.7 kg General appearance: PRESENT: cooperative, mild distress - Mild to moderate d istress, well-developed - Well-developed but frail-appearing Ear exam: PRESENT: normal external ear exam. ABSENT: bleeding, drainage Mouth exam: PRESENT: dry mucosa, tongue midline Respiratory exam: PRESENT: rhonchi, symmetrical, unlabored. ABSENT: rales, tachypnea, wheezes Cardiovascular exam: PRESENT: RRR, +S1, +S2. ABSENT: bradycardia, diastolic murmur, irregular rhythm, systolic murmur, tachycardia GI/Abdominal exam: PRESENT: normal bowel sounds, soft. ABSENT: distended, guarding, tenderness Rectal exam: PRESENT: deferred Gentrourinary exam: ABSENT: indwelling catheter Extremities exam: ABSENT: pedal edema Musculoskeletal exam: PRESENT: normal inspection. ABSENT: deformity, dislocation Neurological exam: PRESENT: alert, awake, oriented to person, oriented to place, oriented to time, oriented to situation, CN II-XII grossly intact. ABSENT: altered Psychiatric exam: PRESENT: flat affect. ABSENT: agitated, anxious Focused psych exam: ABSENT: delusional, paranoid, restlessness Skin exam: PRESENT: dry, pallor, warm Results Laboratory Results: 09/23/20 11:17 09/22/20 09/23/20 11:27 11:17 WBC 2.8 L 2.6 L RBC 2.68 L 2.67 L Hgb 7.9 L 8.0 L Hct 24.0 L 24.1 L MCV 90 D 90 MCH 29.6 30.1 MCHC 33.0 33.3 RDW 21.7 H 22.2 H Plt Count 90 L 105 L Seg Neutrophils % 72.9 09/21/20 22:00 Troponin I < 0.012 NT-Pro-B Natriuret Pep 1000 H Impressions: Chest X-Ray 09/21/20 20:46 IMPRESSION: Interstitial airspace opacities on the left with more dense consolidation at the left base. No significant interval change is suspected when correlated with the June 22, 2020 PET/CT. copyright 2010 [employer]- All Rights Reserved Assessment and Plan - Diagnosis (1) Anemia requiring transfusions Is this a current diagnosis for this admission?: Yes (2) Left lower lobe pneumonia Is this a current diagnosis for this admission?: Yes (3) Pancytopenia Is this a current diagnosis for this admission?: Yes (4) Hyponatremia Is this a current diagnosis for this admission?: Yes (5) Hypokalemia Is this a current diagnosis for this admission?: Yes (6) Volume depletion Is this a current diagnosis for this admission?: Yes (7) Fall Qualifiers: Encounter type: initial encounter Qualified Code(s): W19.XXXA - Unspecified fall, initial encounter Is this a current diagnosis for this admission?: Yes (8) Lung cancer metastatic to bone Is this a current diagnosis for this admission?: Yes (9) Hypotension Qualifiers: Hypotension type: hypotension due to hypovolemia Qualified Code(s): I95.89 - Other hypotension; E86.1 - Hypovolemia Is this a current diagnosis for this admission?: Yes (10) SIADH (syndrome of inappropriate ADH production) Is this a current diagnosis for this admission?: Yes - Plan Summary Summary: (1) Anemia requiring transfusions (2) Left lower lobe pneumonia (3) Pancytopenia (4) Hyponatremia (5) Hypokalemia (6) Volume depletion (7) Fall (8) Lung cancer metastatic to bone (9) Hypotension (10) SIADH (syndrome of inappropriate ADH production) 09/22/2020 Patient received 2 units of packed red blood cells however there was an inadvertent leak. Hemoglobin is only 7.9 after 2 units up from 7.0. Will recheck hemoglobin in the morning. He may require additional blood. Left lower lobe pneumonia. Dual antibiotic therapy at this time. Mucinex to help clear mucus. Pancytopenia from recent chemotherapy treatments. Transfusion for red blood cells. Monitor platelets and white blood cell count. Hypokalemia-supplement potassium Hypotension-corrected with IV fluids Hyponatremia-urine osmolality was over 500 and the serum osmolality was quite low. Urine sodium was less than 5. Patient has SIADH. Possibly/most likely related to his lung cancer. Once blood pressure stabilizes will fluid restrict and monitor serum sodium. 09/23/2020 Hemoglobin is stable at 8.0. Platelets are slightly improved but white blood cell count is still low at 2.6. Blood pressure still on the low side and I have added midodrine 5 mg 3 times a day. Potassium is still slightly low we will add additional oral potassium SIADH-sodium is still low but stable. Once blood pressure is improved I will stop the IV fluid and add a fluid restriction. Unfortunately the lung cancer can predispose patients to SIADH as well. He seems to be stable and his serum sodium is 128.7. Continue antibiotics for his pneumonia. - Time Time Spent with patient: 15-24 minutes Medications reviewed and adjusted accordingly: Yes Anticipated Discharge Disposition: Home with Home Health Anticipated Discharge Timeframe: within 72 hours
[2020-09-23 12:13] LABS: BLOOD UREA NITROGEN 9 mg/dL (7-20); CALCIUM 7.6 mg/dL (8.4-10.2); CHLORIDE 88 mmol/L (98-107); GLUCOSE 111 mg/dL (75-110); POTASSIUM 3.2 mmol/L (3.6-5.0)
--- NOTE | 2020-09-23 12:15 | ADVANCED CARE ---
- Diagnosis (1) Anemia requiring transfusions Diagnosis Current: Yes (2) Left lower lobe pneumonia Diagnosis Current: Yes (3) Pancytopenia Diagnosis Current: Yes (4) Hyponatremia Diagnosis Current: Yes (5) Hypokalemia Diagnosis Current: Yes (6) Volume depletion Diagnosis Current: Yes (7) Fall Diagnosis Current: Yes (8) Lung cancer metastatic to bone Diagnosis Current: Yes (9) Hypotension Diagnosis Current: Yes (10) SIADH (syndrome of inappropriate ADH production) Diagnosis Current: Yes Attendance: The discussion was held at the bedside with the patient, his son and his . Resuscitation Status: Full Code Discussion: The patient has newly diagnosed lung cancer with I believe bone metastases. He is undergoing treatment at [place]. He developed pneumonia and has pancytopenia with significant anemia requiring transfusions. Dr. Hansen is consulting during his hospitalization. He is already needed 2 units of packed red blood cells. Today's labs are pending. The patient is weak. He commented on how some patients go through very difficult chemotherapy and did well and others go through difficult chemotherapy and it makes no difference and they eventually . He did not specifically comment on quality of life. I reviewed the fact that these decisions regarding cancer treatment are always based on risk versus benefit. Clearly many of the regimens are quite toxic but the benefit is the hope of response. With his bone metastases this is advanced and it is unclear if the goal is curative or palliative. Dr. Hansen is going to investigate further the treatment regimen that the patient is on with Dr. Familia Proctor (?) In [place]. The patient's seen taken [facility] when she found out about the transfusions yesterday. I think she appreciates how sick he is. He in fact asked about possibly changing his care locally as the drive to [place] is quite taxing especially in his current condition. We will continue this discussion based on the patient's response to therapy. If he does poorly and does not improve significantly then we might initiate discussion for palliative care. It is too early in his course, in my opinion, for that discussion. Care Planning Goals: Based on patient's response to treatment decide on education for disposition in terms of continue aggressive treatment, positive care or hospice. Document(s) Completed: None Time Spent: 25 minutes
[2020-09-23 12:19] LABS: CARBON DIOXIDE 38 mmol/L (22-30)
[2020-09-23 12:21] LABS: ANION GAP 3 (5-19)
[2020-09-23] MEDS: ALBUTEROL SULFATE HFA (90 MCG/PUFF) 8 GM MDI IH SCH ×3 (14:04→21:56)
[2020-09-23] MEDS: MIDODRINE HCL 5 MG TABLET PO SCH ×2 (14:05→18:18)
[2020-09-23] MEDS ORDERED: POTASSIUM CHLORIDE 10 MEQ TABLET.ER PO ONE (21:00)
[2020-09-23 21:24] LABS: VANCOMYCIN,TROUGH 9.7 ug/mL (5.0-20.0)
[2020-09-23] MEDS: MAGNESIUM SULFATE/D5W 1 GM/100 ML RTUPB IV SCH ×2 (21:54→22:56)
[2020-09-24] MEDS: VANCOMYCIN HCL 1,000 MG in DEXTROSE 5%-WATER 250 ML IV SCH ×2 (00:20→05:40)
[2020-09-24] MEDS: RINGERS SOLUTION,LACTATED 1,000 ML IV PRN ×2 (00:26→14:20)
[2020-09-24] MEDS: ALBUTEROL SULFATE HFA (90 MCG/PUFF) 8 GM MDI (1 MDI/ER DISP) IH SCH (02:06)
[2020-09-24] MEDS: PANTOPRAZOLE SODIUM 40 MG TABLET.DR PO SCH (05:41)
[2020-09-24 05:57] LABS: ABSOLUTE LYMPHOCYTES (AUTO) 0.3 10^3/uL (0.5-4.7); ABSOLUTE MONOCYTES (AUTO) 0.4 10^3/uL (0.1-1.4); ABSOLUTE NEUT (AUTO) 1.9 10^3/uL (1.7-8.2); BASOPHILS % (AUTO) 0.1 % (0-2); LYMPHOCYTES % (AUTO) 10.4 % (13-45); MEAN CORPUSCULAR HGB CONC 34.3 g/dL (32.0-36.0); MEAN CORPUSCULAR VOLUME 90 fl (80-97); MONOCYTES % (AUTO) 16.5 % (3-13); PLATELET COUNT 102 10^3/uL (150-450); RED BLOOD COUNT 2.54 10^6/uL (4.35-5.55); RED CELL DISTRIBUTION WIDTH 21.5 % (11.5-14.0); TOTAL CELLS COUNTED % (AUTO) 100 %; WHITE BLOOD COUNT 2.6 10^3/uL (4.0-10.5)
[2020-09-24 06:21] LABS: BLOOD UREA NITROGEN 11 mg/dL (7-20); CALCIUM 7.6 mg/dL (8.4-10.2); CHLORIDE 85 mmol/L (98-107); GLUCOSE 97 mg/dL (75-110); POTASSIUM 3.5 mmol/L (3.6-5.0)
[2020-09-24 06:27] LABS: CARBON DIOXIDE 39 mmol/L (22-30)
[2020-09-24 06:28] LABS: HEMOGLOBIN 7.9 g/dL (13.5-17.0)
[2020-09-24 06:29] LABS: ANION GAP 3 (5-19)
[2020-09-24] MEDS: TAMSULOSIN HCL 0.4 MG CAP.SR.24H PO SCH (09:22)
[2020-09-24] MEDS: FINASTERIDE 5 MG TABLET PO SCH (09:22)
[2020-09-24] MEDS: POTASSIUM CHLORIDE 10 MEQ TABLET.ER PO SCH (09:22)
[2020-09-24] MEDS: MIDODRINE HCL 5 MG TABLET PO SCH ×3 (09:22→17:48)
[2020-09-24] MEDS: FLUTICASONE NASAL SPRAY 50 MCG/SPRY 120 SPRAY/16 GM NASL SCH (09:23)
[2020-09-24] MEDS: ACETAMINOPHEN 325 MG TABLET PO PRN ×2 (09:29→17:49)
[2020-09-24] MEDS: CEFEPIME HCL 2 GM in DEXTROSE 5%-WATER 50 ML IV SCH ×2 (09:30→23:11)
[2020-09-24] MEDS: ALBUTEROL SULFATE HFA (90 MCG/PUFF) 8 GM MDI IH SCH ×4 (09:31→23:05)
[2020-09-24] MEDS ORDERED: BISACODYL 5 MG TABEC PO PRN (11:45)
[2020-09-24] MEDS ORDERED: RINGERS SOLUTION,LACTATED 1,000 ML IV ONE (11:45)
--- NOTE | 2020-09-24 11:56 | PDOC PROGRESS REPORT ---
Subjective Date:: 09/24/20 Subjective:: Patient states that he is a bit stronger, but not great yet. No new complaints except some constipation. Reason For Visit: PNEUMONIA,HYPONATREMIA,ANEMIA REQUIRING TRANSFUSIO Physical Exam Vital Signs: Temp Pulse Resp BP Pulse Ox 97.9 F 100 17 75/49 L 99 09/24/20 11:09 09/24/20 11:09 09/24/20 11:09 09/24/20 11:09 09/24/20 11:09 Pulse Oximeter Continuous Start: 09/22/20 00:09 Freq: RTQ4 Status: Active Protocol: Document 09/24/20 07:56 [facility] (Rec: 09/24/20 08:00 [facility] [id number]) Pulse Oximetry Assessment Oxygen Saturation (92-100) 100 Oxygen Flow Rate (L/min) 2 Oxygen Delivery Method Nasal Cannula Fraction of Inspired Oxygen (FIO2) 28 Equipment Usage Equipment Standby Continuous SpO2 Machine # 7 Intake & Output 09/23/20 09/24/20 09/25/20 06:59 06:59 06:59 Intake Total 4820 2491 829 Output Total 501 450 Balance 4319 2041 829 Weight 75.7 kg 75.7 kg General appearance: PRESENT: no acute distress Head exam: PRESENT: normocephalic Respiratory exam: PRESENT: unlabored Extremities exam: ABSENT: pedal edema Musculoskeletal exam: PRESENT: other - Sitting up in chair. Neurological exam: PRESENT: alert, awake Skin exam: PRESENT: normal color Results Laboratory Results: 09/24/20 04:49 09/24/20 04:49 09/23/20 09/23/20 09/24/20 11:17 11:17 04:49 WBC 2.6 L 2.6 L RBC 2.67 L 2.54 L Hgb 8.0 L 7.9 L Hct 24.1 L 23.0 L MCV 90 90 MCH 30.1 31.0 MCHC 33.3 34.3 RDW 22.2 H 21.5 H Plt Count 105 L 102 L Seg Neutrophils % 72.9 73.0 Sodium 128.7 L Potassium 3.2 L Chloride 88 L Carbon Dioxide 38 H Anion Gap 3 L BUN 9 Creatinine 0.34 L Est GFR ( Amer) > 60 Glucose 111 H Calcium 7.6 L Magnesium 1.4 L 09/24/20 04:49 WBC RBC Hgb Hct MCV MCH MCHC RDW Plt Count Seg Neutrophils % Sodium 126.9 L Potassium 3.5 L Chloride 85 L Carbon Dioxide 39 H Anion Gap 3 L BUN 11 Creatinine 0.31 L Est GFR ( Amer) > 60 Glucose 97 Calcium 7.6 L Magnesium 1.6 09/21/20 22:00 Troponin I < 0.012 NT-Pro-B Natriuret Pep 1000 H Impressions: Chest X-Ray 09/21/20 20:46 IMPRESSION: Interstitial airspace opacities on the left with more dense consolidation at the left base. No significant interval change is suspected when correlated with the June 22, 2020 PET/CT. copyright 2010 [employer]- All Rights Reserved Assessment & Plan - Diagnosis (1) Lung cancer metastatic to bone Is this a current diagnosis for this admission?: Yes Plan: Treatment currently on hold due to infection. (2) Pancytopenia Is this a current diagnosis for this admission?: Yes Plan: Most likely due to chemotherapy. I offered pRBC again today, but patient declines for now. He is NOT neutropenic, so vanc may be stopped. I will defer to Primary hospitalist. - Time Time Spent with patient: Less than 15 minutes - Plan Summary Plan Summary: I will add stool softeners, etc. at patient's request.
[2020-09-24] MEDS ORDERED: VANCOMYCIN HCL 1,500 MG in DEXTROSE 5%-WATER 250 ML IV SCH (14:00)
--- NOTE | 2020-09-24 16:27 | PDOC PROGRESS REPORT ---
Subjective Date:: 09/24/20 Subjective:: Patient is resting in bed. Again he reports that today he feels better still than yesterday. Unfortunately his blood pressure is low but his hemoglobin seems to be holding. His son and are at the bedside. Reason For Visit: PNEUMONIA,HYPONATREMIA,ANEMIA REQUIRING TRANSFUSIO Physical Exam Vital Signs: Temp Pulse Resp BP Pulse Ox 97.9 F 98 17 75/49 L 99 09/24/20 11:09 09/24/20 14:00 09/24/20 11:09 09/24/20 11:09 09/24/20 16:00 Pulse Oximeter Continuous Start: 09/22/20 00:09 Freq: RTQ4 Status: Active Protocol: Document 09/24/20 16:00 [facility] (Rec: 09/24/20 16:06 [facility] [id number]) Pulse Oximetry Assessment Oxygen Saturation (92-100) 99 Oxygen Delivery Method Room Air Equipment Usage Equipment Standby Continuous SpO2 Machine # 7 Intake & Output 09/23/20 09/24/20 09/25/20 06:59 06:59 06:59 Intake Total 4820 2491 2757 Output Total 501 450 250 Balance 4319 2041 2507 Weight 75.7 kg 75.7 kg 73.5 kg General appearance: PRESENT: no acute distress, cooperative, well-developed Head exam: PRESENT: atraumatic, normocephalic Eye exam: PRESENT: conjunctiva pale. ABSENT: scleral icterus Ear exam: PRESENT: normal external ear exam. ABSENT: bleeding, drainage Respiratory exam: PRESENT: rhonchi - Bilateral bases, symmetrical, unlabored. ABSENT: prolonged expiratory phas, rales, tachypnea, wheezes Cardiovascular exam: PRESENT: RRR, +S1, +S2. ABSENT: bradycardia, diastolic murmur, irregular rhythm, systolic murmur, tachycardia GI/Abdominal exam: PRESENT: normal bowel sounds, soft. ABSENT: distended, tenderness Rectal exam: PRESENT: deferred Gentrourinary exam: ABSENT: indwelling catheter Extremities exam: PRESENT: pedal edema - Trace. ABSENT: calf tenderness Musculoskeletal exam: PRESENT: normal inspection. ABSENT: deformity, dislocation Neurological exam: PRESENT: alert, awake, oriented to person, oriented to place, oriented to time, oriented to situation, CN II-XII grossly intact. ABSENT: altered Psychiatric exam: PRESENT: flat affect. ABSENT: agitated, anxious Focused psych exam: ABSENT: delusional, paranoid, restlessness Skin exam: PRESENT: dry, pallor, warm. ABSENT: rash Results Laboratory Results: 09/24/20 04:49 09/24/20 04:49 09/24/20 09/24/20 04:49 04:49 WBC 2.6 L RBC 2.54 L Hgb 7.9 L Hct 23.0 L MCV 90 MCH 31.0 MCHC 34.3 RDW 21.5 H Plt Count 102 L Seg Neutrophils % 73.0 Sodium 126.9 L Potassium 3.5 L Chloride 85 L Carbon Dioxide 39 H Anion Gap 3 L BUN 11 Creatinine 0.31 L Est GFR ( Amer) > 60 Glucose 97 Calcium 7.6 L Magnesium 1.6 09/21/20 22:00 Troponin I < 0.012 NT-Pro-B Natriuret Pep 1000 H Impressions: Chest X-Ray 09/21/20 20:46 IMPRESSION: Interstitial airspace opacities on the left with more dense consolidation at the left base. No significant interval change is suspected when correlated with the June 22, 2020 PET/CT. copyright 2010 [employer]- All Rights Reserved Assessment and Plan - Diagnosis (1) Anemia requiring transfusions Is this a current diagnosis for this admission?: Yes (2) Left lower lobe pneumonia Is this a current diagnosis for this admission?: Yes (3) Pancytopenia Is this a current diagnosis for this admission?: Yes (4) Hyponatremia Is this a current diagnosis for this admission?: Yes (5) Hypokalemia Is this a current diagnosis for this admission?: Yes (6) Volume depletion Is this a current diagnosis for this admission?: Yes (7) Fall Qualifiers: Encounter type: initial encounter Qualified Code(s): W19.XXXA - Unspecified fall, initial encounter Is this a current diagnosis for this admission?: Yes (8) Lung cancer metastatic to bone Is this a current diagnosis for this admission?: Yes (9) Hypotension Qualifiers: Hypotension type: hypotension due to hypovolemia Qualified Code(s): I95.89 - Other hypotension; E86.1 - Hypovolemia Is this a current diagnosis for this admission?: Yes (10) SIADH (syndrome of inappropriate ADH production) Is this a current diagnosis for this admission?: Yes - Plan Summary Summary: (1) Anemia requiring transfusions (2) Left lower lobe pneumonia (3) Pancytopenia (4) Hyponatremia (5) Hypokalemia (6) Volume depletion (7) Fall (8) Lung cancer metastatic to bone (9) Hypotension (10) SIADH (syndrome of inappropriate ADH production) 09/22/2020 Patient received 2 units of packed red blood cells however there was an inadvertent leak. Hemoglobin is only 7.9 after 2 units up from 7.0. Will recheck hemoglobin in the morning. He may require additional blood. Left lower lobe pneumonia. Dual antibiotic therapy at this time. Mucinex to help clear mucus. Pancytopenia from recent chemotherapy treatments. Transfusion for red blood cells. Monitor platelets and white blood cell count. Hypokalemia-supplement potassium Hypotension-corrected with IV fluids Hyponatremia-urine osmolality was over 500 and the serum osmolality was quite low. Urine sodium was less than 5. Patient has SIADH. Possibly/most likely related to his lung cancer. Once blood pressure stabilizes will fluid restrict and monitor serum sodium. 09/23/2020 Hemoglobin is stable at 8.0. Platelets are slightly improved but white blood cell count is still low at 2.6. Blood pressure still on the low side and I have added midodrine 5 mg 3 times a day. Potassium is still slightly low we will add additional oral potassium SIADH-sodium is still low but stable. Once blood pressure is improved I will stop the IV fluid and add a fluid restriction. Unfortunately the lung cancer can predispose patients to SIADH as well. He seems to be stable and his serum sodium is 128.7. Continue antibiotics for his pneumonia. 09/24/2020 Postchemotherapy pancytopenia-over the last 3 days the hemoglobin has been 7.9, 8.0 and 7.9. This is stable enough to return home. His platelets are 102. White blood cell count has been 2.6 over the last 2 days. No further transfusions. Hopefully the numbers are stable. Hypotension-the patient's blood pressures normally however between high 90s and low 100s. He was in the 70s. We gave him a liter of fluid and I did increase the midodrine to 10 mg 3 times a day. This seems to be working. If this holds steady then consider discharge tomorrow. Hyponatremia-sodium is still 126.9. It has been stable and this his blood pressure improves we can discontinue IV fluid and initiate fluid restriction. Serum potassium is 3.5. Oral potassium supplement being administered. The malignancy and subsequent treatment seems to be taking a toll on the patient. I am going to check an a.m. cortisol. He may require stress dose of cortisol. - Time Time Spent with patient: 25-34 minutes - More than half of this time was spent reviewing the patient's current status as well as laboratory studies and medication changes. We discussed the potential timeframe for discharged home. Medications reviewed and adjusted accordingly: Yes Anticipated Discharge Disposition: Home with Home Health Anticipated Discharge Timeframe: within 48 hours
[2020-09-24] MEDS ORDERED: DOCUSATE SODIUM 100 MG/10 ML UDC PO SCH (18:00)
[2020-09-24] MEDS ORDERED: RINGERS SOLUTION,LACTATED 1,000 ML IV PRN (18:47)
[2020-09-24] MEDS ORDERED: TRAZODONE HCL 50 MG TABLET PO PRN (18:49)
[2020-09-24] MEDS ORDERED: POTASSIUM CHLORIDE 10 MEQ TABLET.ER PO ONE (19:45)
[2020-09-24] MEDS ORDERED: ALBUMIN HUMAN 12.5 GM/50 ML RTUINJ IV ONE ×2 (21:36→23:05)
--- NOTE | 2020-09-24 22:12 | EKG REPORT ---
SEVERITY:- ABNORMAL ECG - SINUS TACHYCARDIA MULTIPLE VENTRICULAR PREMATURE COMPLEXES BORDERLINE RIGHT AXIS DEVIATION NONSPECIFIC REPOL ABNORMALITY, DIFFUSE LEADS : Confirmed by: Denys Rodriguez MD 24-Sep-2020 22:10:53
[2020-09-24] MEDS: ALBUMIN HUMAN 12.5 GM/50 ML RTUINJ IV SCH ×2 (22:35→23:26)
[2020-09-24] MEDS: MELATONIN 5 MG TABLET PO SCH (23:04)
[2020-09-24] MEDS: TRAMADOL HCL 50 MG TABLET PO PRN (23:04)
[2020-09-25] MEDS: PANTOPRAZOLE SODIUM 40 MG TABLET.DR PO SCH (06:07)
[2020-09-25 06:38] LABS: ABSOLUTE LYMPHOCYTES (AUTO) 0.4 10^3/uL (0.5-4.7); ABSOLUTE MONOCYTES (AUTO) 0.5 10^3/uL (0.1-1.4); ABSOLUTE NEUT (AUTO) 3.3 10^3/uL (1.7-8.2); BASOPHILS % (AUTO) 0.2 % (0-2); EOSINOPHILS % (AUTO) 0.1 % (0-6); HEMATOCRIT 21.1 % (37.9-51.0); LYMPHOCYTES % (AUTO) 9.5 % (13-45); MEAN CORPUSCULAR HEMOGLOBIN 30.2 pg (27.0-33.4); MEAN CORPUSCULAR HGB CONC 32.8 g/dL (32.0-36.0); MEAN CORPUSCULAR VOLUME 92 fl (80-97); MONOCYTES % (AUTO) 12.7 % (3-13); PLATELET COUNT 114 10^3/uL (150-450); RED BLOOD COUNT 2.28 10^6/uL (4.35-5.55); RED CELL DISTRIBUTION WIDTH 22.4 % (11.5-14.0); SEGMENTED NEUTROPHILS % (AUTO) 77.5 % (42-78); TOTAL CELLS COUNTED % (AUTO) 100 %; WHITE BLOOD COUNT 4.3 10^3/uL (4.0-10.5)
[2020-09-25 06:46] LABS: HEMOGLOBIN 6.9 g/dL (13.5-17.0)
[2020-09-25 07:00] LABS: BLOOD UREA NITROGEN 9 mg/dL (7-20); CALCIUM 7.6 mg/dL (8.4-10.2); CHLORIDE 89 mmol/L (98-107); GLUCOSE 103 mg/dL (75-110); POTASSIUM 3.3 mmol/L (3.6-5.0)
[2020-09-25] MEDS ORDERED: NORMAL SALINE 250 ML IV PRN ×2 (07:02)
[2020-09-25 07:14] LABS: ANION GAP 5 (5-19); CARBON DIOXIDE 39 mmol/L (22-30)
--- NOTE | 2020-09-25 08:29 | RADIOLOGY REPORT (SQ) ---
EXAM DESCRIPTION: CHEST SINGLE VIEW IMAGES COMPLETED DATE/TIME: 09/24/2020 7:57 pm REASON FOR STUDY: Pneumonia COMPARISON: 09/21/2020 NUMBER OF VIEWS: One view. TECHNIQUE: Single frontal radiographic image of the chest acquired. LIMITATIONS: None. FINDINGS: LUNGS AND PLEURA: Stable appearance. MEDIASTINUM AND HILAR STRUCTURES: Stable heart size and mediastinal structures. HEART AND VASCULAR STRUCTURES: Stable appearance. BONES: No acute findings. HARDWARE: None in the chest. OTHER: No other significant finding. IMPRESSION: STABLE APPEARANCE OF THE CHEST. TECHNICAL DOCUMENTATION: JOB ID: [id number] 2010 [email or web address] All Rights Reserved Reading location - IP/workstation name: [email or web address]
--- NOTE | 2020-09-25 09:05 | PDOC PROGRESS REPORT ---
Subjective Date:: 09/25/20 Subjective:: Patient is feeling much stronger than on admission. He believes he is strong en ough for discharge. Reason For Visit: PNEUMONIA,HYPONATREMIA,ANEMIA REQUIRING TRANSFUSIO Physical Exam Vital Signs: Temp Pulse Resp BP Pulse Ox 97.9 F 113 H 19 81/45 L 98 09/25/20 08:29 09/25/20 08:29 09/25/20 08:29 09/25/20 08:29 09/25/20 08:29 Pulse Oximeter Continuous Start: 09/22/20 00:09 Freq: RTQ4 Status: Active Protocol: Document 09/25/20 00:00 [facility] (Rec: 09/25/20 03:41 [facility] [id number]) Pulse Oximetry Assessment Oxygen Saturation (92-100) 96 Oxygen Delivery Method Room Air Equipment Usage Equipment Standby Continuous SpO2 Machine # 7 Intake & Output 09/24/20 09/25/20 09/26/20 06:59 06:59 06:59 Intake Total 2491 3840 Output Total 450 250 Balance 2041 3590 Weight 75.7 kg 75 kg General appearance: PRESENT: no acute distress Head exam: PRESENT: normocephalic Eye exam: PRESENT: EOMI Mouth exam: PRESENT: moist Respiratory exam: PRESENT: unlabored Extremities exam: ABSENT: pedal edema Neurological exam: PRESENT: alert, awake Psychiatric exam: PRESENT: appropriate affect Skin exam: PRESENT: normal color Results Laboratory Results: 09/25/20 05:20 09/25/20 05:20 09/25/20 09/25/20 05:20 05:20 WBC 4.3 RBC 2.28 L Hgb 6.9 L Hct 21.1 L MCV 92 MCH 30.2 MCHC 32.8 RDW 22.4 H Plt Count 114 L Seg Neutrophils % 77.5 Sodium 133.0 L Potassium 3.3 L Chloride 89 L Carbon Dioxide 39 H Anion Gap 5 BUN 9 Creatinine 0.31 L Est GFR ( Amer) > 60 Glucose 103 Calcium 7.6 L Magnesium 1.5 L Prealbumin 3.0 L 09/21/20 22:00 Troponin I < 0.012 NT-Pro-B Natriuret Pep 1000 H Impressions: Chest X-Ray 09/24/20 00:00 IMPRESSION: STABLE APPEARANCE OF THE CHEST. Assessment & Plan - Diagnosis (1) Lung cancer metastatic to bone Is this a current diagnosis for this admission?: Yes Plan: He will follow-up with primary oncologist and we again discussed option of having some of his treatment locally. I am happy to see him on discharge. He will need to contact the office and request records be shared from his Primary oncologist. (2) Pancytopenia Is this a current diagnosis for this admission?: Yes Plan: WBC and PLT now much improved. However, HGB still much lower. We discussed further blood transfusion. I believe this will help greatly. He agrees. He may be discharged after transfusion, if all else is stable at that time. I would change cefapime to augmentin or other appropriate PO ABX to continue total of 10 days. - Time Time Spent with patient: Less than 15 minutes
[2020-09-25] MEDS: MIDODRINE HCL 5 MG TABLET PO SCH ×3 (10:13→17:53)
[2020-09-25] MEDS: DOCUSATE SODIUM 100 MG CAPSULE PO SCH ×2 (10:14→17:52)
[2020-09-25] MEDS: FINASTERIDE 5 MG TABLET PO SCH (10:14)
[2020-09-25] MEDS: TAMSULOSIN HCL 0.4 MG CAP.SR.24H PO SCH (10:14)
[2020-09-25] MEDS: POTASSIUM CHLORIDE 10 MEQ TABLET.ER PO SCH ×2 (10:14→17:53)
[2020-09-25] MEDS: ALBUTEROL SULFATE HFA (90 MCG/PUFF) 8 GM MDI IH SCH ×4 (10:15→22:06)
[2020-09-25] MEDS: FLUTICASONE NASAL SPRAY 50 MCG/SPRY 120 SPRAY/16 GM NASL SCH (10:16)
[2020-09-25] MEDS: CEFEPIME HCL 2 GM in DEXTROSE 5%-WATER 50 ML IV SCH (10:17)
[2020-09-25] MEDS: TRAMADOL HCL 50 MG TABLET PO PRN (10:31)
--- NOTE | 2020-09-25 11:13 | PDOC PROGRESS REPORT ---
Subjective Date:: 09/25/20 Subjective:: Resting in bed. Feels okay. We sat him in the chair at the end of this encount er. Reason For Visit: PNEUMONIA,HYPONATREMIA,ANEMIA REQUIRING TRANSFUSIO Physical Exam Vital Signs: Temp Pulse Resp BP Pulse Ox 97.9 F 113 H 19 81/45 L 98 09/25/20 08:29 09/25/20 08:29 09/25/20 08:29 09/25/20 08:29 09/25/20 08:29 Pulse Oximeter Continuous Start: 09/22/20 00:09 Freq: RTQ4 Status: Active Protocol: Document 09/25/20 00:00 [facility] (Rec: 09/25/20 03:41 [facility] [email or web address]) Pulse Oximetry Assessment Oxygen Saturation (92-100) 96 Oxygen Delivery Method Room Air Equipment Usage Equipment Standby Continuous SpO2 Machine # 7 Intake & Output 09/24/20 09/25/20 09/26/20 06:59 06:59 06:59 Intake Total 2491 3840 Output Total 450 250 Balance 2041 3590 Weight 75.7 kg 75 kg General appearance: PRESENT: cooperative, mild distress, well-developed Head exam: PRESENT: atraumatic, normocephalic Eye exam: PRESENT: conjunctiva pale. ABSENT: scleral icterus Ear exam: PRESENT: normal external ear exam. ABSENT: bleeding, drainage Mouth exam: PRESENT: moist, tongue midline Respiratory exam: PRESENT: rales - Right base, symmetrical. ABSENT: rhonchi, tachypnea, wheezes Cardiovascular exam: PRESENT: RRR, +S1, +S2 GI/Abdominal exam: PRESENT: normal bowel sounds, soft. ABSENT: distended, guarding, tenderness Rectal exam: PRESENT: deferred Gentrourinary exam: ABSENT: indwelling catheter Extremities exam: ABSENT: pedal edema Musculoskeletal exam: ABSENT: deformity, dislocation Neurological exam: PRESENT: alert, awake, oriented to person, oriented to place, oriented to time, oriented to situation, CN II-XII grossly intact. ABSENT: altered Psychiatric exam: PRESENT: appropriate affect. ABSENT: agitated, anxious Focused psych exam: ABSENT: delusional, paranoid, restlessness Skin exam: PRESENT: dry, pallor, warm. ABSENT: rash Results Laboratory Results: 09/25/20 05:20 09/25/20 05:20 09/25/20 09/25/20 09/25/20 05:20 05:20 07:47 WBC 4.3 RBC 2.28 L Hgb 6.9 L Hct 21.1 L MCV 92 MCH 30.2 MCHC 32.8 RDW 22.4 H Plt Count 114 L Seg Neutrophils % 77.5 Sodium 133.0 L Potassium 3.3 L Chloride 89 L Carbon Dioxide 39 H Anion Gap 5 BUN 9 Creatinine 0.31 L Est GFR ( Amer) > 60 Glucose 103 Calcium 7.6 L Magnesium 1.5 L Prealbumin 3.0 L Blood Type O POSITIVE Antibody Screen NEGATIVE 09/21/20 22:00 Troponin I < 0.012 NT-Pro-B Natriuret Pep 1000 H Impressions: Chest X-Ray 09/24/20 00:00 IMPRESSION: STABLE APPEARANCE OF THE CHEST. Assessment and Plan - Diagnosis (1) Anemia requiring transfusions Is this a current diagnosis for this admission?: Yes (2) Left lower lobe pneumonia Is this a current diagnosis for this admission?: Yes (3) Pancytopenia Is this a current diagnosis for this admission?: Yes (4) Hyponatremia Is this a current diagnosis for this admission?: Yes (5) Hypokalemia Is this a current diagnosis for this admission?: Yes (6) Volume depletion Is this a current diagnosis for this admission?: Yes (7) Fall Qualifiers: Encounter type: initial encounter Qualified Code(s): W19.XXXA - Unspecified fall, initial encounter Is this a current diagnosis for this admission?: Yes (8) Lung cancer metastatic to bone Is this a current diagnosis for this admission?: Yes (9) Hypotension Qualifiers: Hypotension type: hypotension due to hypovolemia Qualified Code(s): I95.89 - Other hypotension; E86.1 - Hypovolemia Is this a current diagnosis for this admission?: Yes (10) SIADH (syndrome of inappropriate ADH production) Is this a current diagnosis for this admission?: Yes - Plan Summary Summary: (1) Anemia requiring transfusions (2) Left lower lobe pneumonia (3) Pancytopenia (4) Hyponatremia (5) Hypokalemia (6) Volume depletion (7) Fall (8) Lung cancer metastatic to bone (9) Hypotension (10) SIADH (syndrome of inappropriate ADH production) 09/22/2020 Patient received 2 units of packed red blood cells however there was an inadvertent leak. Hemoglobin is only 7.9 after 2 units up from 7.0. Will recheck hemoglobin in the morning. He may require additional blood. Left lower lobe pneumonia. Dual antibiotic therapy at this time. Mucinex to help clear mucus. Pancytopenia from recent chemotherapy treatments. Transfusion for red blood cells. Monitor platelets and white blood cell count. Hypokalemia-supplement potassium Hypotension-corrected with IV fluids Hyponatremia-urine osmolality was over 500 and the serum osmolality was quite low. Urine sodium was less than 5. Patient has SIADH. Possibly/most likely related to his lung cancer. Once blood pressure stabilizes will fluid restrict and monitor serum sodium. 09/23/2020 Hemoglobin is stable at 8.0. Platelets are slightly improved but white blood cell count is still low at 2.6. Blood pressure still on the low side and I have added midodrine 5 mg 3 times a day. Potassium is still slightly low we will add additional oral potassium SIADH-sodium is still low but stable. Once blood pressure is improved I will stop the IV fluid and add a fluid restriction. Unfortunately the lung cancer can predispose patients to SIADH as well. He seems to be stable and his serum sodium is 128.7. Continue antibiotics for his pneumonia. 09/24/2020 Postchemotherapy pancytopenia-over the last 3 days the hemoglobin has been 7.9, 8.0 and 7.9. This is stable enough to return home. His platelets are 102. White blood cell count has been 2.6 over the last 2 days. No further transfusions. Hopefully the numbers are stable. Hypotension-the patient's blood pressures normally however between high 90s and low 100s. He was in the 70s. We gave him a liter of fluid and I did increase the midodrine to 10 mg 3 times a day. This seems to be working. If this holds steady then consider discharge tomorrow. Hyponatremia-sodium is still 126.9. It has been stable and this his blood pressure improves we can discontinue IV fluid and initiate fluid restriction. Serum potassium is 3.5. Oral potassium supplement being administered. The malignancy and subsequent treatment seems to be taking a toll on the patient. I am going to check an a.m. cortisol. He may require stress dose of cortisol. 09/25/2020 White blood cells and platelets improved with hemoglobin lower. This could be partly delusional but Dr. Hansen ordered 2 units of packed red blood cells which I agree will help considerably We will change to Augmentin p.o. for hopeful discharge later today Follow-up with oncologist as an outpatient. He was considering seeking oncology care locally Continue oral potassium with additional dose at this time. Continue midodrine 10 mg 3 times a day and slowly taper as an outpatient based on blood pressures. - Time Time Spent with patient: 15-24 minutes Medications reviewed and adjusted accordingly: Yes Anticipated Discharge Disposition: Home with Home Health Anticipated Discharge Timeframe: within 48 hours
[2020-09-25] MEDS ORDERED: POTASSIUM CHLORIDE 10 MEQ TABLET.ER PO ONE (11:45)
[2020-09-25] MEDS: ACETAMINOPHEN 325 MG TABLET PO PRN (15:35)
[2020-09-25 15:54] LABS: VANCOMYCIN,TROUGH < 5.0 ug/mL (5.0-20.0)
[2020-09-25] MEDS: LACTOBACILLUS ACIDOPHILUS 250 MG TAB PO SCH (17:52)
[2020-09-25] MEDS: AMOXICILLIN TR/POT CLAVULANATE 875-125 MG TAB PO SCH (22:06)
[2020-09-25] MEDS: MELATONIN 5 MG TABLET PO SCH (22:06)
[2020-09-25 23:27] LABS: ABSOLUTE LYMPHOCYTES (AUTO) 0.5 10^3/uL (0.5-4.7); ABSOLUTE MONOCYTES (AUTO) 0.7 10^3/uL (0.1-1.4); ABSOLUTE NEUT (AUTO) 3.8 10^3/uL (1.7-8.2); BASOPHILS % (AUTO) 0.2 % (0-2); EOSINOPHILS % (AUTO) 0.1 % (0-6); HEMATOCRIT 26.5 % (37.9-51.0); LYMPHOCYTES % (AUTO) 10.5 % (13-45); MEAN CORPUSCULAR HEMOGLOBIN 30.5 pg (27.0-33.4); MEAN CORPUSCULAR VOLUME 90 fl (80-97); MONOCYTES % (AUTO) 14.6 % (3-13); RED BLOOD COUNT 2.94 10^6/uL (4.35-5.55); RED CELL DISTRIBUTION WIDTH 21.7 % (11.5-14.0); SEGMENTED NEUTROPHILS % (AUTO) 74.6 % (42-78); TOTAL CELLS COUNTED % (AUTO) 100 %
[2020-09-26 00:27] LABS: PLATELET COUNT 94 10^3/uL (150-450)
[2020-09-26] MEDS: PANTOPRAZOLE SODIUM 40 MG TABLET.DR PO SCH (05:46)
[2020-09-26] MEDS: TRAMADOL HCL 50 MG TABLET PO PRN (08:46)
[2020-09-26] MEDS: LACTOBACILLUS ACIDOPHILUS 250 MG TAB PO SCH ×2 (10:35→17:12)
[2020-09-26] MEDS: DOCUSATE SODIUM 100 MG CAPSULE PO SCH ×2 (10:36→17:11)
[2020-09-26] MEDS: POTASSIUM CHLORIDE 10 MEQ TABLET.ER PO SCH ×2 (10:36→17:12)
[2020-09-26] MEDS: FINASTERIDE 5 MG TABLET PO SCH (10:36)
[2020-09-26] MEDS: AMOXICILLIN TR/POT CLAVULANATE 875-125 MG TAB PO SCH ×2 (10:36→21:54)
[2020-09-26] MEDS: TAMSULOSIN HCL 0.4 MG CAP.SR.24H PO SCH (10:36)
[2020-09-26] MEDS: MIDODRINE HCL 5 MG TABLET PO SCH ×3 (10:37→17:13)
[2020-09-26] MEDS: FLUTICASONE NASAL SPRAY 50 MCG/SPRY 120 SPRAY/16 GM NASL SCH (10:43)
[2020-09-26] MEDS: ALBUTEROL SULFATE HFA (90 MCG/PUFF) 8 GM MDI IH SCH ×4 (10:43→21:54)
[2020-09-26] MEDS: OXYCODONE HCL IR 5 MG TABLET PO PRN ×2 (11:55→23:18)
[2020-09-26 12:06] LABS: ABSOLUTE LYMPHOCYTES (AUTO) 0.3 10^3/uL (0.5-4.7); ABSOLUTE MONOCYTES (AUTO) 0.6 10^3/uL (0.1-1.4); ABSOLUTE NEUT (AUTO) 4.5 10^3/uL (1.7-8.2); BASOPHILS % (AUTO) 0.1 % (0-2); HEMATOCRIT 27.7 % (37.9-51.0); HEMOGLOBIN 9.2 g/dL (13.5-17.0); LYMPHOCYTES % (AUTO) 5.9 % (13-45); MEAN CORPUSCULAR HEMOGLOBIN 30.2 pg (27.0-33.4); MEAN CORPUSCULAR HGB CONC 33.1 g/dL (32.0-36.0); MEAN CORPUSCULAR VOLUME 91 fl (80-97); MONOCYTES % (AUTO) 10.8 % (3-13); PLATELET COUNT 110 10^3/uL (150-450); RED BLOOD COUNT 3.04 10^6/uL (4.35-5.55); RED CELL DISTRIBUTION WIDTH 21.5 % (11.5-14.0); SEGMENTED NEUTROPHILS % (AUTO) 83.2 % (42-78); TOTAL CELLS COUNTED % (AUTO) 100 %; WHITE BLOOD COUNT 5.4 10^3/uL (4.0-10.5)
[2020-09-26 12:28] LABS: BLOOD UREA NITROGEN 14 mg/dL (7-20); CALCIUM 8.3 mg/dL (8.4-10.2); GLUCOSE 144 mg/dL (75-110); POTASSIUM 4.2 mmol/L (3.6-5.0)
[2020-09-26 12:33] LABS: CHLORIDE 88 mmol/L (98-107)
[2020-09-26 12:37] LABS: ANION GAP 3 (5-19); CARBON DIOXIDE 39 mmol/L (22-30)
--- NOTE | 2020-09-26 17:02 | PDOC DISCHARGE SUMMARY ---
Impression - Admit/DC Date/PCP Admission Date/Primary Care Provider: 09/21/20 23:46 DOMINGUEZ COLINDRES MD Discharge Date: 09/26/20 - Discharge Diagnosis (1) Anemia requiring transfusions Is this a current diagnosis for this admission?: Yes (2) Fall Is this a current diagnosis for this admission?: Yes (3) Hypokalemia Is this a current diagnosis for this admission?: Yes (4) Hyponatremia Is this a current diagnosis for this admission?: Yes (5) Hypotension Is this a current diagnosis for this admission?: Yes (6) Left lower lobe pneumonia Is this a current diagnosis for this admission?: Yes (7) Lung cancer metastatic to bone Is this a current diagnosis for this admission?: Yes (8) Pancytopenia Is this a current diagnosis for this admission?: Yes (9) Pneumonia Is this a current diagnosis for this admission?: Yes (10) SIADH (syndrome of inappropriate ADH production) Is this a current diagnosis for this admission?: Yes (11) Volume depletion Is this a current diagnosis for this admission?: Yes - Assessment Summary: Per Previous Physician: " (1) Anemia requiring transfusions (2) Left lower lobe pneumonia (3) Pancytopenia (4) Hyponatremia (5) Hypokalemia (6) Volume depletion (7) Fall (8) Lung cancer metastatic to bone (9) Hypotension (10) SIADH (syndrome of inappropriate ADH production) 09/22/2020 Patient received 2 units of packed red blood cells however there was an inadvertent leak. Hemoglobin is only 7.9 after 2 units up from 7.0. Will recheck hemoglobin in the morning. He may require additional blood. Left lower lobe pneumonia. Dual antibiotic therapy at this time. Mucinex to help clear mucus. Pancytopenia from recent chemotherapy treatments. Transfusion for red blood cells. Monitor platelets and white blood cell count. Hypokalemia-supplement potassium Hypotension-corrected with IV fluids Hyponatremia-urine osmolality was over 500 and the serum osmolality was quite low. Urine sodium was less than 5. Patient has SIADH. Possibly/most likely related to his lung cancer. Once blood pressure stabilizes will fluid restrict and monitor serum sodium. 09/23/2020 Hemoglobin is stable at 8.0. Platelets are slightly improved but white blood cell count is still low at 2.6. Blood pressure still on the low side and I have added midodrine 5 mg 3 times a day. Potassium is still slightly low we will add additional oral potassium SIADH-sodium is still low but stable. Once blood pressure is improved I will stop the IV fluid and add a fluid restriction. Unfortunately the lung cancer can predispose patients to SIADH as well. He seems to be stable and his serum sodium is 128.7. Continue antibiotics for his pneumonia. 09/24/2020 Postchemotherapy pancytopenia-over the last 3 days the hemoglobin has been 7.9, 8.0 and 7.9. This is stable enough to return home. His platelets are 102. White blood cell count has been 2.6 over the last 2 days. No further transfusions. Hopefully the numbers are stable. Hypotension-the patient's blood pressures normally however between high 90s and low 100s. He was in the 70s. We gave him a liter of fluid and I did increase the midodrine to 10 mg 3 times a day. This seems to be working. If this holds steady then consider discharge tomorrow. Hyponatremia-sodium is still 126.9. It has been stable and this his blood pressure improves we can discontinue IV fluid and initiate fluid restriction. Serum potassium is 3.5. Oral potassium supplement being administered. The malignancy and subsequent treatment seems to be taking a toll on the patient. I am going to check an a.m. cortisol. He may require stress dose of cortisol. 09/25/2020 White blood cells and platelets improved with hemoglobin lower. This could be partly delusional but Dr. Hansen ordered 2 units of packed red blood cells which I agree will help considerably We will change to Augmentin p.o. for hopeful discharge later today Follow-up with oncologist as an outpatient. He was considering seeking oncology care locally Continue oral potassium with additional dose at this time. Continue midodrine 10 mg 3 times a day and slowly taper as an outpatient based on blood pressures." 09/26/2020 Patient and family all in agreement with discharge home with home health. Patient be discharged with home oxygen. Patient will follow up with his PCP and oncologist. He will complete Augmentin course of total 7 days. Started on salt tablets for what will likely be long-term chronic hyponatremia due to lung cancer causing SIADH. He will need BMP rechecked within 1 week and his PCP or oncology office to ensure his sodium is still approximately 130 or above. - Additional Information Resuscitation Status: Full Code Discharge Diet: As Tolerated, Regular Discharge Activity: Activity As Tolerated, Balance Activity w/Rest Referrals: GUI ASHRAF MD [ACTIVE STAFF] - 10/12/20 10:30 am (Follow-up with primary oncologist in [place], but I am happy to see him PRN as well. ) DOMINGUEZ COLINDRES MD [Primary Care Provider] - 10/05/20 10:00 am Prescriptions: Amoxicillin/Potassium Clav [Augmentin 875-125 Tablet] 1 tab PO Q12 6 Days #12 tablet Lactobacillus Acidophilus [Bacid 250 mg Tablet] 500 mg PO BID #12 tab Trazodone HCl [Desyrel 50 mg Tablet] 50 mg PO QHS PRN #30 tablet PRN Reason: Esomeprazole Magnesium 40 mg PO DAILY #30 suspdr.pkt Potassium Chloride [Klor-Con 10 Meq Tablet ER] 20 meq PO DAILY #30 tablet.er Midodrine HCl 10 mg PO TID #90 tablet Guaifenesin [Mucinex Sr 600 mg Tablet.sa] 600 mg PO Q12HP PRN #12 tablet.sa PRN Reason: Home Medications: Albuterol Sulfate [Albuterol Sulfate Hfa] 2 puff PO QID 09/22/20 Finasteride [Proscar 5 mg Tablet] 5 mg PO DAILY 09/22/20 Fluticasone Propionate [Flonase Nasal Hollister 50 Mcg/Hollister 16 gm] 2 spray NASL DAILY 09/22/20 Oxycodone HCl [Oxy-Ir 5 mg Tablet] 10 mg PO Q4HP PRN 09/22/20 Tamsulosin HCl [Flomax 0.4 mg Cap.sr] 0.8 mg PO DAILY 09/22/20 Amoxicillin/Potassium Clav [Augmentin 875-125 Tablet] 1 tab PO Q12 6 Days #12 tablet 09/26/20 Esomeprazole Magnesium 40 mg PO DAILY #30 suspdr.pkt 09/26/20 Guaifenesin [Mucinex Sr 600 mg Tablet.sa] 600 mg PO Q12HP PRN #12 tablet.sa 09/26/20 Lactobacillus Acidophilus [Bacid 250 mg Tablet] 500 mg PO BID #12 tab 09/26/20 Midodrine HCl 10 mg PO TID #90 tablet 09/26/20 Potassium Chloride [Klor-Con 10 Meq Tablet ER] 20 meq PO DAILY #30 tablet.er 09/26/20 Trazodone HCl [Desyrel 50 mg Tablet] 50 mg PO QHS PRN #30 tablet 09/26/20 History of Present Illiness History of Present Illness: RHIANNON DAN is a 64 year old male Physical Exam Vital Signs: Temp Pulse Resp BP Pulse Ox 97.4 F 107 H 20 77/51 L 94 09/26/20 12:04 09/26/20 14:00 09/26/20 12:04 09/26/20 12:04 09/26/20 13:45 Pulse Oximeter Ambulatory Start: 09/24/20 19:17 Freq: RTDAILY Status: Active Protocol: Document 09/26/20 13:45 NSC (Rec: 09/26/20 14:46 NSC [id number]) Exercise Oximetry Treatment Ambulating SpO2 Charge Now Yes Oxygen Delivery Method Room Air FIO2 (% Oxygen) 21 Recovery O2 Saturation by Pulse Oximetry 94 Pulse Rate 135 Respiratory Rate 20 Exercise O2 Saturation by Pulse Oximetry 86 Pulse Rate 137 Respiratory Rate 20 Resting O2 Saturation by Pulse Oximetry 94 Pulse Rate 95 Respiratory Rate 20 Oximetry Exercise Interval (min) 10 Ambulation Distance (ft) 15 Exercise Tolerance Good Additional RT Notes Other pt on nursing monitor. pt returned to 2lpm after walk Pulse Oximeter Continuous Start: 09/22/20 00:09 Freq: RTQ4 Status: Active Protocol: Document 09/26/20 15:43 [facility] (Rec: 09/26/20 15:43 [facility] [id number]) Pulse Oximetry Assessment Equipment Usage Equipment Standby Continuous SpO2 Machine # 7 Intake & Output 09/25/20 09/26/20 09/27/20 06:59 06:59 06:59 Intake Total 3840 2097 832 Output Total 250 2750 900 Balance 3590 -653 -68 Weight 75 kg Exam: General appearance: PRESENT: no acute distress, chronically ill-appearing elderly white male, states he would like to be discharged home Head exam: PRESENT: atraumatic, normocephalic Eye exam: PRESENT: conjunctiva pink. ABSENT: scleral icterus Mouth exam: PRESENT: moist Respiratory exam: PRESENT: Very minimal scant upper airway crackles consistent with mild phlegm, seems to clear with cough ABSENT: rales, rhonchi, wheezes Cardiovascular exam: PRESENT: RRR. ABSENT: diastolic murmur, rubs, systolic murmur GI/Abdominal exam: PRESENT: normal bowel sounds, soft. ABSENT: distended, guarding, mass, organolmegaly, rebound, tenderness Neurological exam: PRESENT: alert, awake, oriented to person, oriented to place, oriented to time, oriented to situation Psychiatric exam: PRESENT: appropriate affect, normal mood Skin exam: PRESENT: dry, intact, warm Results Laboratory Results: WBC 5.4 10^3/uL (4.0-10.5) 09/26/20 10:48 RBC 3.04 10^6/uL (4.35-5.55) L 09/26/20 10:48 Hgb 9.2 g/dL (13.5-17.0) L 09/26/20 10:48 Hct 27.7 % (37.9-51.0) L 09/26/20 10:48 MCV 91 fl (80-97) 09/26/20 10:48 MCH 30.2 pg (27.0-33.4) 09/26/20 10:48 MCHC 33.1 g/dL (32.0-36.0) 09/26/20 10:48 RDW 21.5 % (11.5-14.0) H 09/26/20 10:48 Plt Count 110 10^3/uL (150-450) L 09/26/20 10:48 Lymph % (Auto) 5.9 % (13-45) L 09/26/20 10:48 [place] % (Auto) 10.8 % (3-13) 09/26/20 10:48 Eos % (Auto) 0.0 % (0-6) 09/26/20 10:48 Baso % (Auto) 0.1 % (0-2) 09/26/20 10:48 Reticulocyte # 0.046 10^6/uL (0.028-0.122) 09/21/20 22:00 Absolute Neuts (auto) 4.5 10^3/uL (1.7-8.2) 09/26/20 10:48 Absolute Lymphs (auto) 0.3 10^3/uL (0.5-4.7) L 09/26/20 10:48 Absolute Monos (auto) 0.6 10^3/uL (0.1-1.4) 09/26/20 10:48 Absolute Eos (auto) 0.0 10^3/uL (0.0-0.6) 09/26/20 10:48 Absolute Basos (auto) 0.0 10^3/uL (0.0-0.2) 09/26/20 10:48 Total Counted 100 09/21/20 22:00 Seg Neutrophils % 83.2 % (42-78) H 09/26/20 10:48 Seg Neuts % (Manual) 71 % (42-78) 09/21/20 22:00 Lymphocytes % (Manual) 9 % (13-45) L 09/21/20 22:00 Monocytes % (Manual) 20 % (3-13) H 09/21/20 22:00 Eosinophils % (Manual) 0 % (0-6) 09/21/20 22:00 Basophils % (Manual) 0 % (0-2) 09/21/20 22:00 Abs Neuts (Manual) 2.0 10^3/uL (1.7-8.2) 09/21/20 22:00 Abs Lymphs (Manual) 0.3 10^3/uL (0.5-4.7) L 09/21/20 22:00 Abs Monocytes (Manual) 0.6 10^3/uL (0.1-1.4) 09/21/20 22:00 Absolute Eos (Manual) 0.0 10^3/uL (0.0-0.6) 09/21/20 22:00 Abs Basophils (Manual) 0.0 10^3/uL (0.0-0.2) 09/21/20 22:00 Platelet Estimate Cancelled 09/22/20 10:08 Platelet Comment DECREASED 09/21/20 22:00 Polychromasia SLIGHT 09/21/20 22:00 Anisocytosis 2+ 09/21/20 22:00 Ovalocytes SLIGHT 09/21/20 22:00 Retic Count (auto) 2.10 % (0.66-2.85) 09/21/20 22:00 PT 17.3 SEC (11.4-15.4) H 09/21/20 22:00 INR 1.40 09/21/20 22:00 APTT 34.5 SEC (23.5-35.8) 09/21/20 22:00 Sodium 129.6 mmol/L (137-145) L 09/26/20 10:48 Potassium 4.2 mmol/L (3.6-5.0) 09/26/20 10:48 Chloride 88 mmol/L (98-107) L 09/26/20 10:48 Carbon Dioxide 39 mmol/L (22-30) H 09/26/20 10:48 Anion Gap 3 (5-19) L 09/26/20 10:48 BUN 14 mg/dL (7-20) 09/26/20 10:48 Creatinine 0.31 mg/dL (0.52-1.25) L 09/26/20 10:48 Est GFR ( Amer) > 60 (>60) 09/26/20 10:48 Est GFR (MDRD) Non-Af > 60 (>60) 09/26/20 10:48 Glucose 144 mg/dL (75-110) H 09/26/20 10:48 Serum Osmolality 264 mOsm/kg (275-301) L 09/21/20 22:00 Calcium 8.3 mg/dL (8.4-10.2) L 09/26/20 10:48 Magnesium 1.5 mg/dL (1.6-2.3) L 09/25/20 05:20 Total Bilirubin 1.0 mg/dL (0.2-1.3) 09/21/20 22:00 Direct Bilirubin 0.3 mg/dL (0.0-0.4) 09/21/20 22:00 Neonat Total Bilirubin Not Reportable 09/21/20 22:00 Neonat Direct Bilirubin Not Reportable 09/21/20 22:00 Neonat Indirect Bili Not Reportable 09/21/20 22:00 AST 22 U/L (17-59) 09/21/20 22:00 ALT 14 U/L (<50) 09/21/20 22:00 Alkaline Phosphatase 87 U/L (38-126) 09/21/20 22:00 Troponin I < 0.012 ng/mL 09/21/20 22:00 NT-Pro-B Natriuret Pep 1000 pg/mL (<125) H 09/21/20 22:00 Total Protein 4.7 g/dL (6.3-8.2) L 09/21/20 22:00 Albumin 2.3 g/dL (3.5-5.0) L 09/21/20 22:00 Prealbumin 3.0 mg/dL (17.6-36.0) L 09/25/20 05:20 Urine Color YELLOW 09/22/20 01:50 Urine Appearance SLIGHTLY-CLOUDY 09/22/20 01:50 Urine pH 5.0 (5.0-9.0) 09/22/20 01:50 Ur Specific Paradox 1.018 09/22/20 01:50 Urine Protein NEGATIVE mg/dL (NEGATIVE) 09/22/20 01:50 Urine Glucose (UA) NEGATIVE mg/dL (NEGATIVE) 09/22/20 01:50 Urine Ketones NEGATIVE mg/dL (NEGATIVE) 09/22/20 01:50 Urine Blood NEGATIVE (NEGATIVE) 09/22/20 01:50 Urine Nitrite NEGATIVE (NEGATIVE) 09/22/20 01:50 Urine Bilirubin NEGATIVE (NEGATIVE) 09/22/20 01:50 Urine Urobilinogen NEGATIVE mg/dL (<2.0) 09/22/20 01:50 Ur Leukocyte Esterase NEGATIVE (NEGATIVE) 09/22/20 01:50 Urine WBC (Auto) 3 /HPF 09/22/20 01:50 Urine RBC (Auto) 0 /HPF 09/22/20 01:50 U Hyaline Cast (Auto) 16 /LPF 09/22/20 01:50 Squamous Epi Cells Auto <1 /HPF 09/22/20 01:50 Urine Mucus (Auto) MOD /LPF 09/22/20 01:50 Urine Osmolality 517 mOsm/kg (300-900) 09/22/20 01:50 Urine Sodium < 5 mmol/L (30-90) L 09/22/20 01:50 Urine Ascorbic Acid NEGATIVE (NEGATIVE) 09/22/20 01:50 Time Trough Drawn 1453 09/25/20 14:53 Vancomycin Trough < 5.0 ug/mL (5.0-20.0) L 09/25/20 14:53 COVID-19 Source Cancelled 09/21/20 21:17 COVID-19 ([facility]ITA) Cancelled 09/21/20 21:17 Influenza A (RT-PCR) NEGATIVE (NEGATIVE) 09/21/20 21:17 Influenza B (RT-PCR) NEGATIVE (NEGATIVE) 09/21/20 21:17 RSV (RT-PCR) NEGATIVE (NEGATIVE) 09/21/20 21:17 SARS-CoV-2 Rap RNA(RT-PCR) NEGATIVE (NEGATIVE) 09/21/20 21:17 Slides for Path Review Cancelled 09/22/20 10:08 Blood Type O POSITIVE 09/25/20 07:47 Blood Type Confirm O POSITIVE 09/21/20 23:55 Antibody Screen NEGATIVE 09/25/20 07:47 Crossmatch See Detail 09/25/20 07:47 09/21/20 22:00 Troponin I < 0.012 NT-Pro-B Natriuret Pep 1000 H Impressions: Chest X-Ray 09/21/20 20:46 IMPRESSION: Interstitial airspace opacities on the left with more dense consolidation at the left base. No significant interval change is suspected when correlated with the June 22, 2020 PET/CT. copyright 2011 [employer]- All Rights Reserved Chest X-Ray 09/24/20 00:00 IMPRESSION: STABLE APPEARANCE OF THE CHEST. Plan Plan of Treatment: Follow-up with PCP Follow-up with oncology Recheck BMP within 1 week Time Spent: Greater than 30 Minutes Stroke Is this a Stroke Patient?: No Acute Heart Failure Is this a Heart Failure Patient?: No
[2020-09-26] MEDS: SODIUM CHLORIDE 1 GM TABLET PO SCH (17:22)
[2020-09-26] MEDS: MELATONIN 5 MG TABLET PO SCH (21:54)
[2020-09-27] MEDS: PANTOPRAZOLE SODIUM 40 MG TABLET.DR PO SCH (05:39)
[2020-09-27 07:50] LABS: ABSOLUTE LYMPHOCYTES (AUTO) 0.4 10^3/uL (0.5-4.7); ABSOLUTE MONOCYTES (AUTO) 0.9 10^3/uL (0.1-1.4); ABSOLUTE NEUT (AUTO) 4.8 10^3/uL (1.7-8.2); BASOPHILS % (AUTO) 0.2 % (0-2); EOSINOPHILS % (AUTO) 0.1 % (0-6); HEMATOCRIT 26.1 % (37.9-51.0); HEMOGLOBIN 8.7 g/dL (13.5-17.0); LYMPHOCYTES % (AUTO) 7.1 % (13-45); MEAN CORPUSCULAR HEMOGLOBIN 30.3 pg (27.0-33.4); MEAN CORPUSCULAR HGB CONC 33.4 g/dL (32.0-36.0); MEAN CORPUSCULAR VOLUME 91 fl (80-97); MONOCYTES % (AUTO) 14.8 % (3-13); PLATELET COUNT 109 10^3/uL (150-450); RED BLOOD COUNT 2.89 10^6/uL (4.35-5.55); RED CELL DISTRIBUTION WIDTH 21.2 % (11.5-14.0); SEGMENTED NEUTROPHILS % (AUTO) 77.8 % (42-78); TOTAL CELLS COUNTED % (AUTO) 100 %; WHITE BLOOD COUNT 6.2 10^3/uL (4.0-10.5)
[2020-09-27 08:10] LABS: BLOOD UREA NITROGEN 12 mg/dL (7-20); CALCIUM 8.2 mg/dL (8.4-10.2); GLUCOSE 97 mg/dL (75-110); POTASSIUM 4.2 mmol/L (3.6-5.0)
[2020-09-27 08:15] LABS: CARBON DIOXIDE 36 mmol/L (22-30); CHLORIDE 90 mmol/L (98-107)
[2020-09-27 08:18] LABS: ANION GAP 3 (5-19)
[2020-09-27] MEDS: DOCUSATE SODIUM 100 MG CAPSULE PO SCH (10:03)
[2020-09-27] MEDS: FINASTERIDE 5 MG TABLET PO SCH (10:04)
[2020-09-27] MEDS: POTASSIUM CHLORIDE 10 MEQ TABLET.ER PO SCH (10:04)
[2020-09-27] MEDS: LACTOBACILLUS ACIDOPHILUS 250 MG TAB PO SCH (10:04)
[2020-09-27] MEDS: TAMSULOSIN HCL 0.4 MG CAP.SR.24H PO SCH (10:05)
[2020-09-27] MEDS: OXYCODONE HCL IR 5 MG TABLET PO PRN (10:05)
[2020-09-27] MEDS: AMOXICILLIN TR/POT CLAVULANATE 875-125 MG TAB PO SCH (10:06)
[2020-09-27] MEDS: MIDODRINE HCL 5 MG TABLET PO SCH (10:06)
[2020-09-27] MEDS: SODIUM CHLORIDE 1 GM TABLET PO SCH (10:06)
[2020-09-27] MEDS: ALBUTEROL SULFATE HFA (90 MCG/PUFF) 8 GM MDI IH SCH (10:07)
[2020-09-27] MEDS: FLUTICASONE NASAL SPRAY 50 MCG/SPRY 120 SPRAY/16 GM NASL SCH (10:08)
[2020-09-27] MEDS: TRAMADOL HCL 50 MG TABLET PO PRN (11:52)
[2020-09-27 12:53] VITALS: BP 89/54
--- NOTE | 2020-09-27 13:47 | PDOC PROGRESS REPORT ---
Subjective Subjective:: 09/22/2020 Patient received 2 units of packed red blood cells however there was an inadvertent leak. Hemoglobin is only 7.9 after 2 units up from 7.0. Will recheck hemoglobin in the morning. He may require additional blood. Left lower lobe pneumonia. Dual antibiotic therapy at this time. Mucinex to help clear mucus. Pancytopenia from recent chemotherapy treatments. Transfusion for red blood cells. Monitor platelets and white blood cell count. Hypokalemia-supplement potassium Hypotension-corrected with IV fluids Hyponatremia-urine osmolality was over 500 and the serum osmolality was quite low. Urine sodium was less than 5. Patient has SIADH. Possibly/most likely related to his lung cancer. Once blood pressure stabilizes will fluid restrict and monitor serum sodium. 09/23/2020 Hemoglobin is stable at 8.0. Platelets are slightly improved but white blood cell count is still low at 2.6. Blood pressure still on the low side and I have added midodrine 5 mg 3 times a day. Potassium is still slightly low we will add additional oral potassium SIADH-sodium is still low but stable. Once blood pressure is improved I will stop the IV fluid and add a fluid restriction. Unfortunately the lung cancer can predispose patients to SIADH as well. He seems to be stable and his serum sodium is 128.7. Continue antibiotics for his pneumonia. 09/24/2020 Postchemotherapy pancytopenia-over the last 3 days the hemoglobin has been 7.9, 8.0 and 7.9. This is stable enough to return home. His platelets are 102. White blood cell count has been 2.6 over the last 2 days. No further transfusions. Hopefully the numbers are stable. Hypotension-the patient's blood pressures normally however between high 90s and low 100s. He was in the 70s. We gave him a liter of fluid and I did increase the midodrine to 10 mg 3 times a day. This seems to be working. If this holds steady then consider discharge tomorrow. Hyponatremia-sodium is still 126.9. It has been stable and this his blood pressure improves we can discontinue IV fluid and initiate fluid restriction. Serum potassium is 3.5. Oral potassium supplement being administered. The malignancy and subsequent treatment seems to be taking a toll on the pa tient. I am going to check an a.m. cortisol. He may require stress dose of cortisol. 09/25/2020 White blood cells and platelets improved with hemoglobin lower. This could be partly delusional but Dr. Hansen ordered 2 units of packed red blood cells which I agree will help considerably We will change to Augmentin p.o. for hopeful discharge later today Follow-up with oncologist as an outpatient. He was considering seeking oncology care locally Continue oral potassium with additional dose at this time. Continue midodrine 10 mg 3 times a day and slowly taper as an outpatient based on blood pressures." 09/26/2020 Patient and family all in agreement with discharge home with home health. Sophia nt be discharged with home oxygen. Patient will follow up with his PCP and oncologist. He will complete Augmentin course of total 7 days. Started on salt tablets for what will likely be long-term chronic hyponatremia due to lung cancer causing SIADH. He will need BMP rechecked within 1 week and his PCP or oncology office to ensure his sodium is still approximately 130 or above. 09/27/2020 Patient discharged home delayed due to waiting on insurance and [employer] company to provide oxygen for the patient. He has no new complaints States he feels a bit better today. Patient and family in agreement with discharge whenever he has oxygen delivered. Reason For Visit: PNEUMONIA,HYPONATREMIA,ANEMIA REQUIRING TRANSFUSIO Physical Exam Vital Signs: Temp Pulse Resp BP Pulse Ox 97.4 F 111 H 17 89/54 L 98 09/27/20 12:11 09/27/20 12:11 09/27/20 12:11 09/27/20 12:11 09/27/20 12:11 Pulse Oximeter Ambulatory Start: 09/24/20 19:17 Freq: RTDAILY Status: Discharge Protocol: Document 09/26/20 13:45 [facility] [place] 09/26/20 14:46 [facility] [id number] Exercise Oximetry Treatment Ambulating SpO2 Charge Now Yes Oxygen Delivery Method Room Air FIO2 (% Oxygen) 21 Recovery O2 Saturation by Pulse Oximetry 94 Pulse Rate 135 Respiratory Rate 20 Exercise O2 Saturation by Pulse Oximetry 86 Pulse Rate 137 Respiratory Rate 20 Resting O2 Saturation by Pulse Oximetry 94 Pulse Rate 95 Respiratory Rate 20 Oximetry Exercise Interval (min) 10 Ambulation Distance (ft) 15 Exercise Tolerance Good Additional RT Notes Other pt on nursing monitor. pt returned to 2lpm after walk Pulse Oximeter Continuous Start: 09/22/20 00:09 Freq: RTQ4 Status: Discharge Protocol: Document 09/27/20 09:34 [facility] [place]Rec: 09/27/20 09:34 [facility] [place] [id number]) Pulse Oximetry Assessment Oxygen Saturation (92-100) 96 Oxygen Flow Rate (L/min) 2 Oxygen Delivery Method Nasal Cannula Fraction of Inspired Oxygen (FIO2) 28 Equipment Usage Equipment Standby Continuous SpO2 Machine # 7 Additional RT Notes Other pt on nursing monitor Intake & Output 09/26/20 09/27/20 09/28/20 06:59 06:59 06:59 Intake Total 2097 1312 807 Output Total 2750 2200 700 Balance -653 -888 107 Weight 75.2 kg 74.7 kg Exam: General appearance: PRESENT: no acute distress, chronically ill-appearing elderly white male, states he feels better today and has more energy Head exam: PRESENT: atraumatic, normocephalic Eye exam: PRESENT: conjunctiva pink. ABSENT: scleral icterus Mouth exam: PRESENT: moist Respiratory exam: PRESENT: Very minimal scant upper airway crackles consistent with mild phlegm, seems to clear with cough ABSENT: rales, rhonchi, wheezes Cardiovascular exam: PRESENT: RRR. ABSENT: diastolic murmur, rubs, systolic murmur GI/Abdominal exam: PRESENT: normal bowel sounds, soft. ABSENT: distended, guarding, mass, organolmegaly, rebound, tenderness Neurological exam: PRESENT: alert, awake, oriented to person, oriented to place, oriented to time, oriented to situation Psychiatric exam: PRESENT: appropriate affect, normal mood Skin exam: PRESENT: dry, intact, warm Results Laboratory Results: 09/27/20 06:03 09/27/20 06:03 09/27/20 09/27/20 06:03 06:03 WBC 6.2 RBC 2.89 L Hgb 8.7 L Hct 26.1 L MCV 91 MCH 30.3 MCHC 33.4 RDW 21.2 H Plt Count 109 L Seg Neutrophils % 77.8 Sodium 129.0 L Potassium 4.2 Chloride 90 L Carbon Dioxide 36 H Anion Gap 3 L BUN 12 Creatinine 0.31 L Est GFR ( Amer) > 60 Glucose 97 Calcium 8.2 L 09/21/20 22:00 Troponin I < 0.012 NT-Pro-B Natriuret Pep 1000 H Impressions: Chest X-Ray 09/24/20 00:00 IMPRESSION: STABLE APPEARANCE OF THE CHEST. Assessment and Plan - Diagnosis (1) Anemia requiring transfusions Is this a current diagnosis for this admission?: Yes (2) Fall Qualifiers: Encounter type: initial encounter Qualified Code(s): W19.XXXA - Unspecified fall, initial encounter Is this a current diagnosis for this admission?: Yes (3) Hypokalemia Is this a current diagnosis for this admission?: Yes (4) Hyponatremia Is this a current diagnosis for this admission?: Yes (5) Hypotension Qualifiers: Hypotension type: hypotension due to hypovolemia Qualified Code(s): I95.89 - Other hypotension; E86.1 - Hypovolemia Is this a current diagnosis for this admission?: Yes (6) Left lower lobe pneumonia Is this a current diagnosis for this admission?: Yes (7) Lung cancer metastatic to bone Is this a current diagnosis for this admission?: Yes (8) Pancytopenia Is this a current diagnosis for this admission?: Yes (9) Pneumonia Qualifiers: Pneumonia type: due to unspecified organism Laterality: left Lung location: unspecified part of lung Qualified Code(s): J18.9 - Pneumonia, unspecified organism Is this a current diagnosis for this admission?: Yes (10) SIADH (syndrome of inappropriate ADH production) Is this a current diagnosis for this admission?: Yes (11) Volume depletion Is this a current diagnosis for this admission?: Yes - Plan Summary Summary: Per Previous Physician: " (1) Anemia requiring transfusions (2) Left lower lobe pneumonia (3) Pancytopenia (4) Hyponatremia (5) Hypokalemia (6) Volume depletion (7) Fall (8) Lung cancer metastatic to bone (9) Hypotension (10) SIADH (syndrome of inappropriate ADH production) 09/22/2020 Patient received 2 units of packed red blood cells however there was an inadvertent leak. Hemoglobin is only 7.9 after 2 units up from 7.0. Will recheck hemoglobin in the morning. He may require additional blood. Left lower lobe pneumonia. Dual antibiotic therapy at this time. Mucinex to help clear mucus. Pancytopenia from recent chemotherapy treatments. Transfusion for red blood cells. Monitor platelets and white blood cell count. Hypokalemia-supplement potassium Hypotension-corrected with IV fluids Hyponatremia-urine osmolality was over 500 and the serum osmolality was quite low. Urine sodium was less than 5. Patient has SIADH. Possibly/most likely related to his lung cancer. Once blood pressure stabilizes will fluid restrict and monitor serum sodium. 09/23/2020 Hemoglobin is stable at 8.0. Platelets are slightly improved but white blood cell count is still low at 2.6. Blood pressure still on the low side and I have added midodrine 5 mg 3 times a day. Potassium is still slightly low we will add additional oral potassium SIADH-sodium is still low but stable. Once blood pressure is improved I will stop the IV fluid and add a fluid restriction. Unfortunately the lung cancer can predispose patients to SIADH as well. He seems to be stable and his serum sodium is 128.7. Continue antibiotics for his pneumonia. 09/24/2020 Postchemotherapy pancytopenia-over the last 3 days the hemoglobin has been 7.9, 8.0 and 7.9. This is stable enough to return home. His platelets are 102. White blood cell count has been 2.6 over the last 2 days. No further transfusions. Hopefully the numbers are stable. Hypotension-the patient's blood pressures normally however between high 90s and low 100s. He was in the 70s. We gave him a liter of fluid and I did increase the midodrine to 10 mg 3 times a day. This seems to be working. If this holds steady then consider discharge tomorrow. Hyponatremia-sodium is still 126.9. It has been stable and this his blood pressure improves we can discontinue IV fluid and initiate fluid restriction. Serum potassium is 3.5. Oral potassium supplement being administered. The malignancy and subsequent treatment seems to be taking a toll on the patient. I am going to check an a.m. cortisol. He may require stress dose of cortisol. 09/25/2020 White blood cells and platelets improved with hemoglobin lower. This could be partly delusional but Dr. Hansen ordered 2 units of packed red blood cells which I agree will help considerably We will change to Augmentin p.o. for hopeful discharge later today Follow-up with oncologist as an outpatient. He was considering seeking oncology care locally Continue oral potassium with additional dose at this time. Continue midodrine 10 mg 3 times a day and slowly taper as an outpatient based on blood pressures." 09/26/2020 Patient and family all in agreement with discharge home with home health. Patient be discharged with home oxygen. Patient will follow up with his PCP and oncologist. He will complete Augmentin course of total 7 days. Started on salt tablets for what will likely be long-term chronic hyponatremia due to lung cancer causing SIADH. He will need BMP rechecked within 1 week and his PCP or oncology office to ensure his sodium is still approximately 130 or above. - Time Time Spent with patient: 15-24 minutes Medications reviewed and adjusted accordingly: Yes Anticipated Discharge Disposition: Home with Home Health Anticipated Discharge Timeframe: within 24 hours
== END 2020-09-27 12:45 | disposition home health service (06) | DRG 808 ==
LOC: ER 20:11 → EH 23:46 → 5 09-22 03:11
PROVIDERS: ADMIT Student in an Organized Health Care Education/Training Program; ATTEND Internal Medicine
PROC: 30233N1 Transfusion of Nonautologous Red Blood Cells into Peripheral Vein, Percutaneous Approach (ICD-10-PCS; principal; 2020-09-22)
DX: D61.810 Antineoplastic chemotherapy induced pancytopenia (principal); J18.9 Pneumonia, unspecified organism; S22.49XA Multiple fractures of ribs, unspecified side, initial encounter for closed fracture; C34.90 Malignant neoplasm of unspecified part of unspecified bronchus or lung; C79.51 Secondary malignant neoplasm of bone; E22.2 Syndrome of inappropriate secretion of antidiuretic hormone; E87.6 Hypokalemia; Z20.828 Contact with and (suspected) exposure to other viral communicable diseases; D63.0 Anemia in neoplastic disease; W19.XXXA Unspecified fall, initial encounter; I95.89 Other hypotension; E86.1 Hypovolemia; T45.1X5A Adverse effect of antineoplastic and immunosuppressive drugs, initial encounter; Z79.899 Other long term (current) drug therapy; Z87.891 Personal history of nicotine dependence; Z92.3 Personal history of irradiation; Z80.0 Family history of malignant neoplasm of digestive organs
CPT/HCPCS: 36415; 36430; 71045; 80048; 80053; 80202; 81001; 82565; 83735; 83880; 83930; 83935; 84134; 84300; 84484; 85025; 85027; 85045; 85610; 85730; 86850; 86900; 86901; 86920; 93005; 93010; 94761; 94762; 96361; 96365; 99285; 0241U; C9803; J0692; J2405; J2543; J3370; J3475; J3490; J7030; J7060; J7120; P9016; P9047

== ENCOUNTER 2020-10-11 19:05 | Observation (INO) | payer MEDICARE, OTHER ==
[2020-10-11] MEDS ORDERED: NORMAL SALINE 1000 ML 2,170 ML IV ONE (20:47)
[2020-10-11] MEDS ORDERED: AZITHROMYCIN INJ 500 MG VIAL IV ONE (20:47)
[2020-10-11] MEDS ORDERED: VANCOMYCIN HCL INJ 1000 MG VIAL IV ONE (20:47)
[2020-10-11] MEDS ORDERED: CEFEPIME INJ 1 GM VIAL IM ONE (20:47)
--- NOTE | 2020-10-11 21:01 | ER Document Report ---
ED General - General Chief Complaint: Arrhythmia Stated Complaint: ELEVATED HEART RATE Primary Care Provider: DOMINGUEZ COLINDRES MD [Primary Care Provider] - Follow up as needed Notes: 64-year-old male with stage IV lung CA on chemotherapy, pancytopenia, SIADH presents with generalized weakness worse for the past few days. Patient says that when she was he has felt weak since being discharged from the hospital for anemia and pneumonia several weeks ago but has worsened now, but patient denies any specific symptoms. Endorses being short of breath but says that he has been short of breath for years, endorses cough but says he has also had cough intermittently for a long time. Says that he has fevers sometimes and thinks he had a fever of "100 point something" a few days ago. Patient denies chest pain, vomiting, diarrhea, black stool, bloody stool, urinary symptoms, abdominal pain, cardiac history TRAVEL OUTSIDE OF THE [place] IN LAST 30 DAYS: No - Related Data Allergies/Adverse Reactions: No Known Allergies Allergy (Verified 06/14/19 07:26) Past Medical History - General Information source: Patient, Relative, [facility] - Social History Smoking Status: Unknown if Ever Smoked Family History: Reviewed & Not Pertinent, Malignancy Renal/ Medical History: Denies: Hx Peritoneal Dialysis Psychiatric Medical History: Denies: Hx Depression Review of Systems - Review of Systems Notes: REVIEW OF SYSTEMS: CONSTITUTIONAL : + fever, chills, or sweats. EENT: Denies recent cold/sinus symptoms, denies throat pain CARDIOVASCULAR: Denies chest pain, DEBORAH RESPIRATORY: + cough, + shortness of breath. GASTROINTESTINAL: Denies abdominal pain, nausea/vomiting. GENITOURINARY: Denies difficulty urinating, painful urination. MUSCULOSKELETAL: Denies neck pain, injuries SKIN: Denies rash or skin lesions. HEMATOLOGIC : Denies easy bruising or bleeding. LYMPHATIC: Denies swollen, enlarged glands. NEUROLOGICAL: Denies headache, denies change in gait. PSYCHIATRIC: Denies SI, HI Physical Exam - Vital signs Vitals: Temp Pulse Resp BP Pulse Ox 98.4 F 150 H 22 H 100/61 91 L 10/11/20 19:37 10/11/20 19:37 10/11/20 19:37 10/11/20 19:37 10/11/20 19:37 - Notes Notes: PHYSICAL EXAMINATION: GENERAL: Chronically ill-appearing cachectic middle-aged man appearing older than stated age sitting up in stretcher in no acute distress HEAD: Atraumatic, normocephalic. EYES: Pupils equal round and appropriate constriction, sclera anicteric, conjunctiva are normal. ENT: nares patent, moist mucous membranes. NECK: Normal range of motion, supple without lymphadenopathy LUNGS: Breath sounds clear to auscultation bilaterally and equal. No wheezes rales or rhonchi. Very mildly tachypneic, nasal cannula in place HEART: Tachycardic regular rhythm, no murmurs ABDOMEN: Soft, nontender, no guarding, no masses, no CVAT EXTREMITIES: Normal range of motion, no pitting or edema. No cyanosis. NEUROLOGICAL: Awake, alert, conversing appropriately, moves all extremities sp ontaneously. PSYCH: Normal mood, normal affect. SKIN: Warm, Dry, poor turgor Course - Re-evaluation Re-evalutation: 10/11/20 21:01 Patient with tachycardia and hypotension with vague weakness with metastatic lung CA history of anemia. Rule out PE, sepsis especially pneumonia and COVID- 19, ACS, GI bleed, electrolyte abnormalities, neutropenic fever. Start sepsis protocol in order CTA, patient without any renal hepatic or CHF history so have ordered 30 mL/kg fluid bolus, will monitor for signs of fluid overload. No signs of meningitis, patient awake alert and able to give reliable history. Spoke to patient's RN initially to asked that patient's work-up be expedited as patient's vitals are unstable. 10/12/20 03:11 Patient feels greatly improved after fluids and analgesia for chronic severe back cancer pain (no recent changes to this pain). CTA delayed after line blew, but dose of empiric Lovenox given pending scan and no sign of massive PE clinically. Patient's blood pressure and heart rate have also improved. Waiting for results of CT to admit patient. Patient remained stable on nasal cannula without any signs of respiratory distress at patient has tolerated fluid bolus well, given borderline blood pressure I therefore ordered another additional liter. 10/12/20 04:14 Patient remains comfortable, respiratory status stable, CTA shows postobstructive pneumonia also supported by new leukocytosis with neutrophil predominance and fevers prior to arrival, presented patient to Dr. Cardenas 10/12/20 05:20 Dr. Dominguez has accepted patient and requests observation medical floor bed - Vital Signs Vital signs: Temp Pulse Resp BP Pulse Ox 97.7 F 115 H 29 H 80/51 L 100 10/12/20 08:27 10/12/20 08:27 10/12/20 08:27 10/12/20 08:27 10/12/20 08:27 - Laboratory Results Result Diagrams: 10/11/20 19:57 10/11/20 19:57 Laboratory Results Interpreted: 10/11/20 10/11/20 10/11/20 19:57 19:57 19:57 WBC 13.9 H RBC 3.01 L Hgb 9.0 L Hct 28.0 L RDW 20.5 H Seg Neuts % (Manual) 92 H Lymphocytes % (Manual) 3 L Abs Neuts (Manual) 12.8 H Abs Lymphs (Manual) 0.4 L PT 16.0 H APTT 39.1 H Sodium 129.0 L Chloride 89 L Carbon Dioxide 35 H Creatinine 0.38 L Glucose 111 H Alkaline Phosphatase 143 H Total Protein 6.2 L Albumin 2.7 L Urine Protein 10/11/20 23:15 WBC RBC Hgb Hct RDW Seg Neuts % (Manual) Lymphocytes % (Manual) Abs Neuts (Manual) Abs Lymphs (Manual) PT APTT Sodium Chloride Carbon Dioxide Creatinine Glucose Alkaline Phosphatase Total Protein Albumin Urine Protein 30 H Critical Laboratory Results Reviewed: No Critical Results - Radiology Results Critical Radiology Results Reviewed: No Critical Results Discharge - Discharge Clinical Impression: Postobstructive pneumonia, Volume depletion Metastatic cancer Qualifiers: Area of secondary neoplastic involvement: bone Qualified Code(s): C79.51 - Secondary malignant neoplasm of bone Hypotension Qualifiers: Hypotension type: hypotension due to hypovolemia Qualified Code(s): I95.89 - Other hypotension Disposition: AGAINST MEDICAL ADVICE Admitting Provider: [facility] Unit Admitted: Medical Floor Referrals: DOMINGUEZ COLINDRES MD [Primary Care Provider] - Follow up as needed
[2020-10-11 21:22] LABS: MEAN CORPUSCULAR HEMOGLOBIN 29.8 pg (27.0-33.4); MEAN CORPUSCULAR HGB CONC 32.1 g/dL (32.0-36.0); MEAN CORPUSCULAR VOLUME 93 fl (80-97); PLATELET COUNT 230 10^3/uL (150-450); RED BLOOD COUNT 3.01 10^6/uL (4.35-5.55); RED CELL DISTRIBUTION WIDTH 20.5 % (11.5-14.0); WHITE BLOOD COUNT 13.9 10^3/uL (4.0-10.5)
[2020-10-11 21:30] LABS: ALBUMIN 2.7 g/dL (3.5-5.0); ALKALINE PHOSPHATASE 143 U/L (38-126); ANION GAP 5 (5-19); ASPARTATE AMINO TRANSFERASE 29 U/L (17-59); BILIRUBIN,DIRECT 0.4 mg/dL (0.0-0.4); BILIRUBIN,TOTAL 0.9 mg/dL (0.2-1.3); BLOOD UREA NITROGEN 14 mg/dL (7-20); CALCIUM 8.4 mg/dL (8.4-10.2); CARBON DIOXIDE 35 mmol/L (22-30); CHLORIDE 89 mmol/L (98-107); GLUCOSE 111 mg/dL (75-110); POTASSIUM 4.7 mmol/L (3.6-5.0); TOTAL PROTEIN 6.2 g/dL (6.3-8.2)
[2020-10-11 21:33] LABS: INTERNATIONAL RATION (INR) 1.26
[2020-10-11 21:34] LABS: PARTIAL THROMBOPLASTIN TIME 39.1 SEC (23.5-35.8)
--- NOTE | 2020-10-11 21:38 | RADIOLOGY REPORT (SQ) ---
EXAM DESCRIPTION: XR CHEST 1 VIEW COMPLETED DATE/TME: 10/11/2020 21:09 CLINICAL HISTORY: 64 years, Male, lung ca sob COMPARISON: Chest x-ray 09/24/2020. CT chest 08/17/2020 TECHNIQUE: Upright portable chest x-ray FINDINGS: Mild cardiomegaly. Enlarged main pulmonary artery. Elevation of left hemidiaphragm. Moderate size consolidation left lower lobe. Hyperinflation more obvious in the right lung. Chronic interstitial lung disease. IMPRESSION: Multiple abnormalities. No change.
[2020-10-11 21:47] LABS: ABSOLUTE LYMPHOCYTES# (MANUAL) 0.4 10^3/uL (0.5-4.7); ABSOLUTE MONOCYTES # (MANUAL) 0.7 10^3/uL (0.1-1.4); BASOPHILS % (MANUAL) 0 % (0-2); EOSINOPHILS % (MANUAL) 0 % (0-6); LYMPHOCYTES % (MANUAL) 3 % (13-45); MONOCYTES % (MANUAL) 5 % (3-13); SEGMENTED NEUTROPHILS % (MAN) 92 % (42-78); TOTAL CELLS COUNTED 100
[2020-10-11 21:48] LABS: ANISOCYTOSIS 2+; OVALOCYTES SLIGHT; PLATELET COMMENT ADEQUATE
[2020-10-11] MEDS ORDERED: HYDROMORPHONE HCL INJ/PF 2 MG/ML AMPULE IV ONE (21:52)
--- NOTE | 2020-10-11 21:58 | EKG REPORT ---
SEVERITY:- ABNORMAL ECG - SINUS TACHYCARDIA ATRIAL PREMATURE COMPLEX ABNORMAL T, CONSIDER ISCHEMIA, LATERAL LEADS : Confirmed by: Maria D Harrison MD 11-Oct-2020 21:58:08
[2020-10-11] MEDS ORDERED: ENOXAPARIN SODIUM INJ 80 MG/0.8 ML DISP.SYRIN SUBCUT ONE (22:41)
[2020-10-12 00:25] LABS: APPEARANCE,URINE CLEAR; BILIRUBIN,URINE NEGATIVE (NEGATIVE); COLOR,URINE YELLOW; GLUCOSE, URINE NEGATIVE (NEGATIVE); KETONES,URINE NEGATIVE (NEGATIVE); PROTEIN,URINE 30 mg/dL (NEGATIVE); URINE SPECIFIC GRAVITY 1.016; UROBILINOGEN,URINE NEGATIVE mg/dL (<2.0)
[2020-10-12] MEDS ORDERED: ENOXAPARIN SODIUM INJ 80 MG/0.8 ML DISP.SYRIN SUBCUT ONE (01:15)
[2020-10-12] MEDS ORDERED: NORMAL SALINE 1000 ML 1,000 ML IV ONE (03:09)
--- NOTE | 2020-10-12 03:23 | RADIOLOGY REPORT (SQ) ---
CT angiogram chest with contrast on 10/12/2020 at 2:34 AM CLINICAL INDICATION: Tachycardia, shortness of breath, hypotension, history of lung cancer TECHNIQUE: Multiple axial images are obtained throughout the chest following the administration of IV contrast. Computer generated 3D reconstructions/MIPS were performed. This exam was performed according to our departmental dose-optimization program, which includes automated exposure control, adjustment of the mA and/or kV according to patient size and/or use of iterative reconstruction technique. Total DLP is 553.1 mGy*cm. COMPARISON: 08/17/2020 FINDINGS: There has been significant increase in size of expansile soft tissue mass from a lytic destructive lesion from bony metastatic lesion from the right anterolateral second rib. The soft tissue component is well seen on axial image 30 and measures approximately 3.0 x 2.6 cm. Emphysematous changes of the lungs are noted. There are peripheral and basilar predominant reticular interstitial changes consistent with a chronic underlying interstitial lung disease. There has been increase in size of poorly defined central left lower lobe lung mass consistent with the patient's primary malignancy. This is causing extensive postobstructive pneumonia in the left lower lobe. The mass is difficult to measure due to the adjacent pneumonia. There is a very small left pleural effusion. There is no right pleural effusion or pericardial effusion. There is no thoracic aortic aneurysm or dissection. There is worsening subcarinal and right infrahilar adenopathy. Lymph node on axial image 78 measures 2.3 x 2.3 cm. Limited visualized upper abdomen is unremarkable. There are other worsening lytic destructive soft tissue masses involving right ribs involving the right anterior fifth rib seen well on axial image 87 and large lesion involving the right posterior fifth and sixth ribs with associated pathologic fractures of the right posterior fifth and sixth ribs. There are now pathologic fractures involving the right posterior fifth through eighth ribs. The pathologic fractures at right sixth and seventh ribs were present previously with new pathologic fracture involving the right posterior fifth rib and the right posterior eighth rib. Soft tissue mass involving the right posterior sixth rib is well seen on axial image 70. Multiple other smaller bilateral rib lesions that are all similar are also noted bilaterally consistent with worsening bony metastatic disease. There are no filling defects within the pulmonary arteries to suggest pulmonary embolus. There is also worsening lytic destructive lesion in the right posterior superior T4 vertebral body extending into the right T4 pedicle. IMPRESSION: 1. Findings consistent with worsening tumor involvement in the left lower lobe with postobstructive pneumonia in the left lower lobe with worsening bony metastatic disease especially involving bilateral ribs with pathologic fractures of the right posterior fifth through eighth ribs. 2. No evidence of pulmonary embolus.
[2020-10-12] MEDS ORDERED: HYDROMORPHONE HCL INJ/PF 2 MG/ML AMPULE IV ONE (03:30)
[2020-10-12] MEDS ORDERED: ACETAMINOPHEN 325 MG TABLET PO PRN (04:57)
[2020-10-12] MEDS ORDERED: OXYCODONE-ACETAMINOPHEN 5-325 MG TABLET PO PRN (04:57)
[2020-10-12] MEDS ORDERED: ONDANSETRON HCL INJ/PF 4 MG/2 ML SDV IV PRN (04:57)
[2020-10-12] MEDS ORDERED: RINGERS SOLUTION,LACTATED 1,000 ML IV PRN (04:57)
--- NOTE | 2020-10-12 05:17 | PDOC H&P ---
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 Patient was recently discharged from hospital after being treated for pneumonia and he states that he has been relatively doing well since discharge, doing home physical therapy until a day ago at which time he started having generalized weakness in addition to symptoms stated above. He reports that he also feels lightheaded at times. He has a longstanding back pain which has been making him uncomfortable when lying on his back. He denies any nausea, vomiting, chest pain, palpitation, abdominal pain, diarrhea. He denies any recent sick contact history. Past Medical History Psychiatric Medical History: Denies: Depression Social History Information Source: Patient Lives with: Family Smoking Status: Unknown if Ever Smoked Frequency of Alcohol Use: None Hx Recreational Drug Use: No Drugs: None - Advance Directive Resuscitation Status: Full Code Family History Family History: Reviewed & Not Pertinent, Malignancy Parental Family History Reviewed: Yes Children Family History Reviewed: Yes Sibling(s) Family History Reviewed.: Yes Medication/Allergy Home Medications: Albuterol Sulfate [Albuterol Sulfate Hfa] 2 puff PO QID 09/22/20 Finasteride [Proscar 5 mg Tablet] 5 mg PO DAILY 09/22/20 Fluticasone Propionate [Flonase Nasal [place] 50 Mcg/[place] 16 gm] 2 spray NASL DAILY 09/22/20 Oxycodone HCl [Oxy-Ir 5 mg Tablet] 10 mg PO Q4HP PRN 09/22/20 Tamsulosin HCl [Flomax 0.4 mg Cap.sr] 0.8 mg PO DAILY 09/22/20 Amoxicillin/Potassium Clav [Augmentin 875-125 Tablet] 1 tab PO Q12 6 Days #12 tablet 09/26/20 Esomeprazole Magnesium 40 mg PO DAILY #30 suspdr.pkt 09/26/20 Guaifenesin [Mucinex Sr 600 mg Tablet.sa] 600 mg PO Q12HP PRN #12 tablet.sa 09/26/20 Lactobacillus Acidophilus [Bacid 250 mg Tablet] 500 mg PO BID #12 tab 12/01/20 Midodrine HCl 10 mg PO TID #90 tablet 09/26/20 Potassium Chloride [Klor-Con 10 Meq Tablet ER] 20 meq PO DAILY #30 tablet.er 09/26/20 Sodium Chloride [Sodium Chloride 1 gm Tablet] 1 gm PO DAILY #30 tablet 09/26/20 Trazodone HCl [Desyrel 50 mg Tablet] 50 mg PO QHS PRN #30 tablet 09/26/20 Allergies/Adverse Reactions: No Known Allergies Allergy (Verified 06/14/19 07:26) Review of Systems Constitutional: ABSENT: chills, headache(s), weight gain, weight loss Eyes: ABSENT: visual disturbances Ears: ABSENT: hearing changes Cardiovascular: ABSENT: chest pain, edema, orthropnea, palpitations Respiratory: PRESENT: as per HPI Gastrointestinal: ABSENT: abdominal pain, constipation, diarrhea, hematemesis, hematochezia, nausea, vomiting Musculoskeletal: ABSENT: joint swelling Integumentary: ABSENT: rash, wounds Neurological: ABSENT: abnormal gait, abnormal speech, confusion, dizziness, focal weakness, syncope Psychiatric: ABSENT: anxiety, depression, homidical ideation, suicidal ideation Endocrine: ABSENT: cold intolerance, heat intolerance, polydipsia, polyuria Hematologic/Lymphatic: ABSENT: easy bleeding, easy bruising Physical Exam Vital Signs: Temp Pulse Resp BP Pulse Ox 99.7 F 150 H 34 H 85/45 L 97 10/11/20 20:16 10/11/20 19:37 10/12/20 03:00 10/12/20 02:16 10/12/20 03:00 Intake & Output 10/10/20 10/11/20 10/12/20 06:59 06:59 06:59 Intake Total 2420 Balance 2420 Weight 72.4 kg Additional comments: GENERAL APPEARANCE: Alert and oriented x3, in no acute distress, chronically sick looking, on 2 L in front of above treatment HEENT: Normocephalic and atraumatic. No scleral icterus. Moist oral mucosa NECK: Supple. No lymphadenopathy or tenderness. No JVD CHEST: Symmetric. Nontender to palpation. LUNGS: Has good air entry, coarse crackles on the left lower lung field HEART: Regular rate and rhythm with normal S1 and S2. No murmurs, gallops, or rubs. ABDOMEN: soft, active bowel sounds, no direct or rebound tenderness. No organomegaly detected. EXTREMITIES: No cyanosis, clubbing, or edema. MUSCULOSKELETAL: No deformity, atrophy or swelling noted PSYCHIATRIC: Recent and remote memory is intact. Appropriate mood and affect. SKIN: Warm, dry, and well perfused. No lesions or rashes are noted. NEUROLOGIC: No focal sensory or motor deficits are noted. Results Laboratory Results: 10/11/20 19:57 10/11/20 19:57 10/11/20 10/11/20 10/11/20 19:57 19:57 21:45 WBC 13.9 H RBC 3.01 L Hgb 9.0 L Hct 28.0 L MCV 93 MCH 29.8 MCHC 32.1 RDW 20.5 H Plt Count 230 Seg Neutrophils % Not Reportable VBG pH VBG pCO2 VBG HCO3 VBG Base Excess Sodium 129.0 L Potassium 4.7 Chloride 89 L Carbon Dioxide 35 H Anion Gap 5 BUN 14 Creatinine 0.38 L Est GFR ( Amer) > 60 Glucose 111 H Lactic Acid 1.1 Calcium 8.4 Total Bilirubin 0.9 AST 29 Alkaline Phosphatase 143 H Total Protein 6.2 L Albumin 2.7 L Urine Color Urine Appearance Urine pH Ur Specific [place] Urine Protein Urine Glucose (UA) Urine Ketones Urine Blood Urine RBC (Auto) Blood Type Antibody Screen 10/11/20 10/11/20 10/11/20 22:15 22:15 23:15 WBC RBC Hgb Hct MCV MCH MCHC RDW Plt Count Seg Neutrophils % VBG pH Cancelled VBG pCO2 Cancelled VBG HCO3 Cancelled VBG Base Excess Cancelled Sodium Potassium Chloride Carbon Dioxide Anion Gap BUN Creatinine Est GFR ( Amer) Glucose Lactic Acid Calcium Total Bilirubin AST Alkaline Phosphatase Total Protein Albumin Urine Color YELLOW Urine Appearance CLEAR Urine pH 7.0 Ur Specific [place] 1.016 Urine Protein 30 H Urine Glucose (UA) NEGATIVE Urine Ketones NEGATIVE Urine Blood NEGATIVE Urine RBC (Auto) 0 Blood Type O POSITIVE Antibody Screen NEGATIVE 10/12/20 10/12/20 00:51 04:18 WBC RBC Hgb Hct MCV MCH MCHC RDW Plt Count Seg Neutrophils % VBG pH VBG pCO2 VBG HCO3 VBG Base Excess Sodium Potassium Chloride Carbon Dioxide Anion Gap BUN Creatinine Est GFR ( Amer) Glucose Lactic Acid 1.0 0.9 Calcium Total Bilirubin AST Alkaline Phosphatase Total Protein Albumin Urine Color Urine Appearance Urine pH Ur Specific [place] Urine Protein Urine Glucose (UA) Urine Ketones Urine Blood Urine RBC (Auto) Blood Type Antibody Screen 10/11/20 19:57 Troponin I 0.015 Impressions: Chest X-Ray 10/11/20 20:48 IMPRESSION: Multiple abnormalities. No change. Chest/Abdomen CTA 10/11/20 20:51 IMPRESSION: 1. Findings consistent with worsening tumor involvement in the left lower lobe with postobstructive pneumonia in the left lower lobe with worsening bony metastatic disease especially involving bilateral ribs with pathologic fractures of the right posterior fifth through eighth ribs. 2. No evidence of pulmonary embolus. Assessment and Plan - Diagnosis (1) Sepsis Is this a current diagnosis for this admission?: Yes Plan: Patient presents with worsening cough, subjective fever and generalized weakness Was tachycardic and hypotensive on presentation Patient has low blood pressure at baseline and was previously on midodrine which was discontinued since his last discharge Lactic acid level was within the normal limits Likely source of infection left lower lobe pneumonia, postobstructive Has leukocytosis with left shift Started on vancomycin and cefepime Continue IV hydration Follow-up with blood culture Closely monitor vital signs (2) Postobstructive pneumonia Is this a current diagnosis for this admission?: Yes Plan: Patient has a history of lung cancer with metastasis to bones Now admitted after presenting with cough CT chest shows features concerning for postobstructive pneumonia in the left lower lobe Has leukocytosis with left shift Started on vancomycin and cefepime On intranasal oxygen Follow-up with blood culture and adjust antibiotic accordingly Monitor CBC, vital signs (3) Acute and chronic respiratory failure with hypoxia Is this a current diagnosis for this admission?: Yes Plan: Patient was discharged home intranasal oxygen 2 weeks back Now presents with acute worsening of shortness of breath Likely precipitated by worsening postobstructive pneumonia Continue intranasal oxygen We will closely monitor his respiratory parameters for signs of impending respiratory failure (4) Anemia Is this a current diagnosis for this admission?: Yes Plan: H&H on this encounter of 07/24 which is around his baseline Continue monitoring CBC (5) Hypotension Qualifiers: Hypotension type: hypotension due to hypovolemia Qualified Code(s): I95.89 - Other hypotension; E86.1 - Hypovolemia Is this a current diagnosis for this admission?: Yes Plan: Patient has a chronic hypotension, 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 Was previously on midodrine Currently blood pressure has responded well to initial IV fluid Closely monitor vital signs and hydrate accordingly (6) Hyponatremia Is this a current diagnosis for this admission?: Yes Plan: Patient has chronic hyponatremia likely due to SIADH from lung cancer Sodium level on this encounter was 129 He has been hydrated per sepsis protocol at the ED Continue monitoring BMP (7) Lung cancer metastatic to bone Is this a current diagnosis for this admission?: Yes Plan: Currently patient is having immunotherapy CT chest shows worsening both cough metastatic volume with pathologic fracture of posterior right 5th through 8th ribs Continue pain control with Percocet Follow-up with heme-onc - Time Time Spent with patient: 35 or more minutes Total Critical Time (Minutes): 45 Medications reviewed and adjusted accordingly: Yes Anticipated Discharge Disposition: Home with Home Health Anticipated Discharge Timeframe: within 72 hours - Inpatient Certification Based on my medical assessment, after consideration of the patient's comorbidities, presenting symptoms, or acuity I expect that the services needed warrant INPATIENT care.: Yes I certify that my determination is in accordance with my understanding of Medicare's requirements for reasonable and necessary INPATIENT services [42 CFR 412.3e].: Yes Medical Necessity: Significant Comorbidiites Make Outpatient Treatment Too Risky, Need Close Monitoring Due to Risk of Patient Decompensation, Need For Con tinuous Telemetry Monitoring, Need for IV Antibiotics, Risk of Complication if Not Cared For in Hospital Post Hospital Care: D/C or Transfer Summary
[2020-10-12] MEDS ORDERED: VANCOMYCIN HCL 0 MG in DEXTROSE 5%-WATER 250 ML IV NR (05:30)
[2020-10-12] MEDS ORDERED: VANCOMYCIN HCL 1,250 MG in DEXTROSE 5%-WATER 250 ML IV SCH (08:00)
[2020-10-12 08:28] VITALS: BP 80/51
[2020-10-12] MEDS ORDERED: CEFEPIME HCL 2 GM in DEXTROSE 5%-WATER 50 ML IV SCH (10:00)
[2020-10-12] MEDS ORDERED: CEFEPIME 2 GM/D5W RTU 2 GM/50 ML RTUPB IV SCH (10:00)
[2020-10-12] MEDS ORDERED: ENOXAPARIN SODIUM INJ 40 MG/0.4 ML DISP.SYRIN SUBCUT SCH (10:00)
[2020-10-12] MEDS ORDERED: FAMOTIDINE 20 MG TABLET PO SCH (10:00)
[2020-10-13] MEDS ORDERED: PHARMACY COMMUNICATION ORDER MC ONE (07:30)
== END 2020-10-12 08:46 | disposition left against medical advice (07) ==
LOC: ER 19:05 → EH 10-12 04:58 → UNDOADMOB 10-12 05:29 → EH 10-12 05:29 → ER 10-12 08:46
PROVIDERS: ADMIT Student in an Organized Health Care Education/Training Program; ATTEND Student in an Organized Health Care Education/Training Program
DX: A41.9 Sepsis, unspecified organism (principal); J18.8 Other pneumonia, unspecified organism; J96.21 Acute and chronic respiratory failure with hypoxia; I95.89 Other hypotension; D64.9 Anemia, unspecified; E87.1 Hypo-osmolality and hyponatremia; E86.1 Hypovolemia; C34.90 Malignant neoplasm of unspecified part of unspecified bronchus or lung; C79.51 Secondary malignant neoplasm of bone; M84.48XA Pathological fracture, other site, initial encounter for fracture; G89.3 Neoplasm related pain (acute) (chronic); M54.9 Dorsalgia, unspecified; Z79.899 Other long term (current) drug therapy; Z20.828 Contact with and (suspected) exposure to other viral communicable diseases
CPT/HCPCS: 93005; 96376; 99285; 96372 ×2; 96361 ×2; 96375; 96365; 96367; 86900; 86901; 36415; 87040; 86850; 83605; 85025; 85610; 85730; 0202U ×23; 80053; 81001; 84484; 71045; 71275; 93010; J0692; J1170 ×2; J7030 ×2; J3370; J0456; J1650